=== PATIENT | male | born 1935 | race Caucasian/White ===

== ENCOUNTER 2016-11-24 18:41 | Observation (INO) | payer OTHER ==
[2016-11-24] MEDS ORDERED: NS 1000 ML 1,000 ML ONE ×2 (18:49→18:57)
[2016-11-24] MEDS ORDERED: NS 1000 ML 1,000 ML IV ONE (18:53)
[2016-11-24 19:17] LABS: BASOPHILS % (AUTO) 0.2 % (0.2-1.0); EOSINOPHILS % (AUTO) 0.6 % (0.9-2.9); HEMATOCRIT 36.3 % (42.0-54.0); HEMOGLOBIN 12.6 g/dL (13.5-18.0); LYMPHOCYTES # (AUTO) 0.9 X10^3/uL (1.3-2.9); LYMPHOCYTES % (AUTO) 17.9 % (21.0-51.0); MEAN CORPUSCULAR HEMOGLOBIN 31.7 pg (27.0-34.0); MEAN CORPUSCULAR HGB CONC 34.9 g/dL (33.0-35.0); MEAN CORPUSCULAR VOLUME 90.8 fL (80.0-100.0); MEAN PLATELET VOLUME 7.5 fL (7.4-11.0); MONOCYTES # (AUTO) 0.7 x10^3/uL (0.3-0.8); MONOCYTES % (AUTO) 13.4 % (0.0-13.0); NEUTROPHILS # (AUTO) 3.3 x10^3/uL (2.2-4.8); NEUTROPHILS % (AUTO) 67.9 % (42.0-75.0); PLATELET COUNT 172 X10^3/uL (150.0-450.0); RED BLOOD COUNT 3.99 X10^6/uL (4.7-6.0); RED CELL DISTRIBUTION WIDTH 14.8 % (11.6-16.5); WHITE BLOOD COUNT 4.9 X10^3/uL (3.6-10.0)
[2016-11-24 19:30] LABS: BLOOD UREA NITROGEN 18 mg/dL (7-18); CALCIUM 8.6 mg/dL (8.5-10.1); CARBON DIOXIDE 27.5 mmol/L (21-32); CHLORIDE 106 mmol/L (98-107); COR NA(FOR HYPERGLY) 144 mmol/L (136-145); CREATININE 1.71 mg/dL (0.70-1.30); GLUCOSE 134 mg/dL (65-99); SODIUM 143 mmol/L (136-145); TROPONIN I < 0.02 ng/mL (0-1.5); eGFR BLACK RACES 50 (>60); eGFR NON BLACK RACES 41 (>60)
[2016-11-24 19:34] LABS: ALANINE AMINOTRANSFERASE 24 Units/L (12-78); ALBUMIN 3.4 g/dL (3.4-5.0); ALKALINE PHOSPHATASE 70 Units/L (46-116); ASPARTATE AMINO TRANSFERASE 22 Units/L (15-37); CREATINE KINASE 82 Units/L (39-308); CREATINE KINASE MB < 1.0 ng/mL (0-4.0); MAGNESIUM 1.9 mg/dL (1.7-2.9); TOTAL PROTEIN 6.9 g/dL (6.4-8.2)
[2016-11-24 19:39] LABS: CKMB % 1.2 % (<4)
--- NOTE | 2016-11-24 20:17 | DR.GENAD ---
HPI - PCP Primary Care Physician: WILNER - Complaint/Symptoms Chief Complaint:: PT C/O C/C/C, DIZZINESS, WEAKNESS, AND FEVER. PT'S SYMPOTOMS STARTED SATURDAY. Patient actually presents with chest pain that has progressively gotten worse. His PMH is significant for stent placed two months ago at [facility]. - Source History Provided: Patient - Mode of Arrival Mode of Arrival: Ambulatory - Timing Onset of Chief Complaint: 11/22/16 PMH - PMH Past Medical History: Yes Past Medical History: Coronary Artery Disease, Dyslipidemia, [place] Past Surgical History: Yes Surgical History: CABG/Valve Surgery - Family History History of Family Medical Conditions: Yes Family Medical History: [place], Coronary Artery Disease, Hypertension - Social History Does any household member use tobacco: No Alcohol Use: None Do you use any recreational Drugs:: No Lives With: Family Lives Where: Home - infectious screening In the last 2 months have you had wt loss of >10#?: NO Have you had fever, night sweats or hemotysis?: No Have you traveled outside the country in the last 6 months?: No Isolation: Standard ROS - Review of Systems Constitutional: No Symptoms Reported Eyes: No Symptoms Reported ENTM: No Symptoms Reported Respiratoy: No Symptoms Reported Cardiovascular: No Symptoms Reported Gastrointestinal/Abdominal: No Symptoms Reported Genitourinary: No Symptoms Reported Neurological: No Symptoms Reported Musculoskeletal: No Symptoms Reported Integumentary: No Symptoms Reported Hematologic/Lymphatic: No Symptoms Reported Endocrine: No Symptoms Reported Psychiatric: No Symptoms Reported All Other Systems: Reviewed and Negative PE - Vital Signs Vitals: Temperature 99.1 F Pulse Rate [Left Brachial] 96 Pulse Rate [Standing] 63 Pulse Rate [Sitting] 74 Pulse Rate [Lying] 74 Pulse Rate 74 Respiratory Rate 16 Blood Pressure [Left Arm] 118/57 Blood Pressure [Standing] 89/49 Blood Pressure [Sitting] 104/53 Blood Pressure [Lying] 111/59 Blood Pressure 65/48 O2 Sat by Pulse Oximetry 98 - General Limitations: No Limitations General Appearance: Alert, In No Apparent Distress - Head Head Exam: Normal Inspection, Atraumatic - Eyes Eye exam: Normal Appearance, PERRL, EOMI - ENT ENT Exam: Normal Exam External Ear Exam: Normal External Inspection TM/Canal Exam: Bilateral Normal Nose Exam: Normal Nose Exam, Sinus Tenderness Mouth Exam: Normal Inspection Throat Exam: Normal Inspection - Neck Neck Exam: Normal Inspection, Full ROM - Chest Chest Inspection: Normal Inspection - Respiratory Respiratory Exam: Normal Lung Sounds Bilat Respiratory Exam: Bilateral Clear to Auscultation - Cardiovascular Cardiovascular Exam: Regular Rate - Abdominal Exam Abdominal Exam: Normal Inspection, Normal Bowel Sounds Abdominal Tenderness: negative: RUQ, RLQ, LUQ, LLQ, Epigastrium, Suprapubic, Diffuse, Mild, Moderate, Severe, Other - Extremities Extremities Exam: Normal Inspection, Full ROM - Back Back Exam: Normal Inspection, Full ROM - Neurologic Neurological Exam: Alert, Oriented X3, CN II-XII Intact - Psychiatric Psychiatric Exam: Normal Affect - Skin Skin Exam: Warm, Dry, Intact Course - Consultation Called: 21:44 (Agreed to admit for chest pain r/o) ROR - Labs Reviewed Laboratory Results Reviewed?: Yes (cardiac enzymes wnl) Result Diagrams: 11/24/16 19:08 11/24/16 19:08 Laboratory: WBC 4.9 X10^3/uL (3.6-10.0) 11/24/16 19:08 RBC 3.99 X10^6/uL (4.7-6.0) L 11/24/16 19:08 Hgb 12.6 g/dL (13.5-18.0) L 11/24/16 19:08 Hct 36.3 % (42.0-54.0) L 11/24/16 19:08 MCV 90.8 fL (80.0-100.0) 11/24/16 19:08 MCH 31.7 pg (27.0-34.0) 11/24/16 19:08 MCHC 34.9 g/dL (33.0-35.0) 11/24/16 19:08 RDW 14.8 % (11.6-16.5) 11/24/16 19:08 Plt Count 172 X10^3/uL (150.0-450.0) 11/24/16 19:08 MPV 7.5 fL (7.4-11.0) 11/24/16 19:08 Neut % 67.9 % (42.0-75.0) 11/24/16 19:08 Lymph % 17.9 % (21.0-51.0) L 11/24/16 19:08 [place] % 13.4 % (0.0-13.0) H 11/24/16 19:08 Eos % 0.6 % (0.9-2.9) L 11/24/16 19:08 Baso % 0.2 % (0.2-1.0) 11/24/16 19:08 Neut # 3.3 x10^3/uL (2.2-4.8) 11/24/16 19:08 Lymph # 0.9 X10^3/uL (1.3-2.9) L 11/24/16 19:08 [place] # 0.7 x10^3/uL (0.3-0.8) 11/24/16 19:08 Eos # 0.0 x10^3/uL (0.0-0.2) 11/24/16 19:08 Baso # 0.0 X10^3/uL (0.0-0.1) 11/24/16 19:08 Absolute Nucleated RBC 0.0 /100WBC 11/24/16 19:08 INR Target Range - 11/24/16 19:08 INR 0.95 (0.8-1.3) 11/24/16 19:08 PTT 30.4 SECONDS (22.9-36.5) 11/24/16 19:08 PTT Comment - 11/24/16 19:08 Sodium 143 mmol/L (136-145) 11/24/16 19:08 Corrected Sodium 144 mmol/L (136-145) 11/24/16 19:08 Potassium 3.5 mmol/L (3.5-5.1) 11/24/16 19:08 Chloride 106 mmol/L (98-107) 11/24/16 19:08 Carbon Dioxide 27.5 mmol/L (21-32) 11/24/16 19:08 BUN 18 mg/dL (7-18) 11/24/16 19:08 Creatinine 1.71 mg/dL (0.70-1.30) H 11/24/16 19:08 Est GFR (MDRD) Af Amer 50 (>60) L 11/24/16 19:08 Est GFR (MDRD) Non-Af 41 (>60) L 11/24/16 19:08 Glucose 134 mg/dL (65-99) H 11/24/16 19:08 Calcium 8.6 mg/dL (8.5-10.1) 11/24/16 19:08 Corrected Calcium TNP 11/24/16 19:08 Magnesium 1.9 mg/dL (1.7-2.9) 11/24/16 19:08 Total Bilirubin 0.30 mg/dL (0.2-1.0) 11/24/16 19:08 AST 22 Units/L (15-37) 11/24/16 19:08 ALT 24 Units/L (12-78) 11/24/16 19:08 Alkaline Phosphatase 70 Units/L (46-116) 11/24/16 19:08 Creatine Kinase 82 Units/L (39-308) 11/24/16 19:08 CK-MB (CK-2) < 1.0 ng/mL (0-4.0) 11/24/16 19:08 CK/CKMB % Calc 1.2 % (<4) 11/24/16 19:08 Troponin I < 0.02 ng/mL (0-1.5) 11/24/16 19:08 Total Protein 6.9 g/dL (6.4-8.2) 11/24/16 19:08 Albumin 3.4 g/dL (3.4-5.0) 11/24/16 19:08 Globulin 3.5 g/dL (2.5-4.5) 11/24/16 19:08 Albumin/Globulin Ratio 1.0 Ratio (1.1-2.1) L 11/24/16 19:08 Influenza A (H1N1) PCR Invalid-recollect (NOT DETECT) 11/24/16 19:00 Influenza Type A (PCR) Invalid-recollect (NEGATIVE) 11/24/16 19:00 Influenza Type B (PCR) Invalid-recollect (NEGATIVE) 11/24/16 19:00 - XRAY XRAY Interpreted by: Radiologist (Chest:Chronic lung parenchymal changes are seen bilaterally and the lung volumes are increased, consistent with COPD, no acute abnormality) - EKG Rate: 67 Rhythm: NSR Block: IVCD ST: Nonsp - Diagnosis Discharge Problem: Chest pain, rule out acute myocardial infarction - Discharge Plan Condition: Stable - Follow ups/Referrals Follow ups/Referrals: Rodrigo Baez [Primary Care Provider] - 3 days - Instructions
--- NOTE | 2016-11-24 21:08 | RAD ---
EXAM: Chest X-ray INDICATION: Chest pain COMPARISION: Prior exam from August 14, 2016 TECHNIQUE: Single view FINDINGS: Chronic lung parenchymal changes are present bilaterally. The lung volumes are increased, and there is flattening of the hemidiaphragms. No focal lung parenchymal abnormality identified. The cardiac silhouette is normal. Sternotomy wires and mediastinal clips are present. The mediastinum is normal . The regional skeleton is intact. No evidence of a pleural effusion. IMPRESSION: Chronic lung parenchymal changes are seen bilaterally and the lung volumes are increased, consistent with COPD. No acute abnormality. Reported By:
[2016-11-24] MEDS ORDERED: MORPHINE SULFATE INJ 4 MG IVP PRN (21:58)
[2016-11-24] MEDS ORDERED: ZOFRAN INJ 4 MG VIAL IVP PRN (21:59)
[2016-11-24 22:45] LABS: CKMB % 1.3 % (<4); CREATINE KINASE 80 Units/L (39-308); CREATINE KINASE MB < 1.0 ng/mL (0-4.0); TROPONIN I < 0.02 ng/mL (0-1.5)
[2016-11-25] MEDS: NS 1000 ML 1,000 ML IV SCH ×3 (00:17→21:22)
[2016-11-25] MEDS: TAMIFLU PO SCH ×3 (00:18→21:23)
[2016-11-25] MEDS: ASPIRIN EC 81 MG PO SCH ×2 (00:19→21:23)
[2016-11-25] MEDS: LIPITOR TAB 40 MG PO SCH ×2 (00:19→21:23)
[2016-11-25] MEDS: AMBIEN PO PRN ×2 (00:19→21:24)
[2016-11-25] MEDS: RANEXA PO SCH ×3 (00:19→21:23)
[2016-11-25] MEDS: PLAVIX PO SCH ×2 (00:20→21:23)
[2016-11-25] MEDS: NEURONTIN CAP 300 MG PO SCH ×4 (00:20→21:24)
[2016-11-25 00:21] VITALS: BMI 29.2
[2016-11-25 04:23] LABS: CHOL/HDL RATIO 4.2 (0.0-5.0); CHOLESTEROL 118 mg/dL (0-200); CKMB % 1.5 % (<4); CREATINE KINASE 65 Units/L (39-308); CREATINE KINASE MB < 1.0 ng/mL (0-4.0); HDL CHOLESTEROL 28 mg/dL (40-60); TRIGLYCERIDES 187 mg/dL (0-150); TROPONIN I < 0.02 ng/mL (0-1.5)
[2016-11-25] MEDS: VITAMIN D3 PO SCH (08:53)
[2016-11-25 10:33] LABS: CREATINE KINASE 65 Units/L (39-308); CREATINE KINASE MB < 1.0 ng/mL (0-4.0); TROPONIN I < 0.02 ng/mL (0-1.5)
[2016-11-25 11:16] LABS: CKMB % 1.5 % (<4)
[2016-11-25] MEDS: ROBITUSSIN DM PO SCH ×3 (14:52→21:22)
[2016-11-25] MEDS: TUSSIONEX PENNKINETIC SUSP PO PRN (15:56)
[2016-11-26] MEDS: NS 1000 ML 1,000 ML IV SCH (03:55)
[2016-11-26 05:12] LABS: BASOPHILS % (AUTO) 0.3 % (0.2-1.0); HEMATOCRIT 31.7 % (42.0-54.0); HEMOGLOBIN 11.2 g/dL (13.5-18.0); LYMPHOCYTES # (AUTO) 1.2 X10^3/uL (1.3-2.9); LYMPHOCYTES % (AUTO) 27.7 % (21.0-51.0); MEAN CORPUSCULAR HEMOGLOBIN 32.3 pg (27.0-34.0); MEAN CORPUSCULAR HGB CONC 35.2 g/dL (33.0-35.0); MEAN CORPUSCULAR VOLUME 91.8 fL (80.0-100.0); MEAN PLATELET VOLUME 7.9 fL (7.4-11.0); MONOCYTES # (AUTO) 0.7 x10^3/uL (0.3-0.8); MONOCYTES % (AUTO) 16.3 % (0.0-13.0); NEUTROPHILS # (AUTO) 2.4 x10^3/uL (2.2-4.8); NEUTROPHILS % (AUTO) 54.7 % (42.0-75.0); PLATELET COUNT 128 X10^3/uL (150.0-450.0); RED BLOOD COUNT 3.46 X10^6/uL (4.7-6.0); RED CELL DISTRIBUTION WIDTH 14.7 % (11.6-16.5); WHITE BLOOD COUNT 4.4 X10^3/uL (3.6-10.0)
[2016-11-26 05:27] LABS: ALANINE AMINOTRANSFERASE 18 Units/L (12-78); ALBUMIN 2.9 g/dL (3.4-5.0); ALKALINE PHOSPHATASE 56 Units/L (46-116); ASPARTATE AMINO TRANSFERASE 18 Units/L (15-37); BLOOD UREA NITROGEN 16 mg/dL (7-18); CALCIUM 8.4 mg/dL (8.5-10.1); CARBON DIOXIDE 25.6 mmol/L (21-32); CHLORIDE 107 mmol/L (98-107); COR CA(FOR HYPOALB) 9.3 mg/dL (8.5-10.1); GLUCOSE 101 mg/dL (65-99); SODIUM 139 mmol/L (136-145); eGFR BLACK RACES 58 (>60); eGFR NON BLACK RACES 48 (>60)
[2016-11-26] MEDS: TUSSIONEX PENNKINETIC SUSP PO PRN (06:04)
[2016-11-26] MEDS: NEURONTIN CAP 300 MG PO SCH (06:04)
--- NOTE | 2016-11-26 07:57 | RAD ---
HISTORY: Shortness of breath Study: Chest two-view Comparison: November 24, 2016 Findings: The patient is status post median sternotomy and CABG. The heart is upper limits normal in size. No congestive heart failure is noted. No acute alveolar infiltrates or pleural effusions are identified . Mild hyperinflation is present. The bony thorax is unremarkable. IMPRESSION: Lungs mildly hyperinflated but clear Reported By:
[2016-11-26] MEDS: VITAMIN D3 PO SCH (09:13)
[2016-11-26] MEDS: ROBITUSSIN DM PO SCH (09:13)
[2016-11-26] MEDS: TAMIFLU PO SCH (09:13)
[2016-11-26] MEDS: RANEXA PO SCH (09:14)
[2016-11-26 12:09] VITALS: BP 97/54
--- NOTE | 2016-11-26 14:06 | DR.H&P ---
H&P - History & Physical for Day of: H&P Date: 11/24/16 - Chief Complaint Chief Complaint: CHEST PAIN, CCC, DIZZINESS, WEAKNESS, FEVER - Allergies Allergies/Adverse Reactions: Allergies Allergy/AdvReac Type Severity Reaction Status Date / Time No Known Drug Allergy Allergy Verified 08/14/16 19:32 - History of Present Illness History of Present Illness: THIS IS AN 81 YEAR OLD MALE, WHO IS A PATIENT OF OURS. HE PRESENTS TO THE EMERGENCY ROOM WITH COMPLAINTS OF CHEST PAIN, CCC, DIZZINESS, WEAKNESS, AND FEVER. PATIENT REPORTS SYMPTOMS STARTED ON 11/22/16. HE STATES CHEST PAIN ALSO STARTED ON THAT DATE AND HAS PROGRESSIVELY WORSENED. HE HAS A HISTORY OF CARDIAC STENT PLACEMENT 2 MONTHS AGO. PATIENT REPORTS LOW- GRADE TEMP AT HOME. ON AUSCULTATION, LUNGS ARE NOTED WITH RHONCHI THROUGHOUT. LABS AND XRAY OBTAINED. CBC WNL EXCEPT: H/H 12.6/36.3. CMP WNL EXCEPT: CREAT 1.71, GFR 41, GLUCOSE 134. CARDIAC ENZYMES WNL. INFLUENZA A POSITIVE. CHEST XRAY REPORTS CHRONIC LUNG PARENCHYMAL CHANGES ARE SEEN; LUNG VOLUMES INCREASED, CONSISTENT WITH COPD. EKG: SINUS RHYTHM, RATE 67. PATIENT RECEIVED AN IV FLUIDS BOLUS IN THE ER. WE WILL ADMIT PATIENT FOR FURTHER TREATMENT AND EVALUATION. PATIENT WILL BE MONITORED ON TELEMETRY AND WE WILL OBTAIN SERIAL CARDIAC ENZYMES AND EKG'S. - Past Medical History Past Medical History: Coronary Artery Disease, Dyslipidemia, [place] Additional Medical History: Cataracts, Constipation, Skin Cancer - Past Surgical History Surgical History: Angioplasty/Stents, CABG/Valve Surgery - Family History Family Medical History: [place], Sudden Cardiac - Social History Does patient currently use any type of tobacco product: No Have you used tobacco products in the last 12 months: No Type of Tobacco Use: None Does any household member use tobacco: No Alcohol Use: None Drug Use: None - Medications Home Medications: Aspirin [Aspirin Adult Low Dose] 81 mg PO HS 11/24/16 [History Confirmed ] Atorvastatin Calcium [LIPITOR Tab 40 mg *] 40 mg PO HS 11/24/16 [History Confirmed 11/24/16] Bisacodyl [Sb Gentle Laxative Womens] 5 mg PO PRN PRN 11/24/16 [History Confirmed 11/24/16] Cholecalciferol [Vitamin D3] 5,000 unit PO DAILY 11/24/16 [History Confirmed ] Clopidogrel Bisulfate [PLAVIX TAB 75 MG *] 75 mg PO HS 11/24/16 [History Confirmed 11/24/16] Gabapentin [NEURONTIN CAP 300 mg *] 300 mg PO TID 11/24/16 [History Confirmed ] Ranolazine [RANEXA 500 MG *] 500 mg PO BID 11/24/16 [History Confirmed 11/24/16] Zolpidem Tartrate [AMBIEN 5 MG *] 5 mg PO HS PRN 11/24/16 [History Confirmed ] - Review of Systems Constitutional: Fever, Weakness, Malaise Eyes: No Symptoms Reported. denies: Pain, Vision Change, Conjunctivae Inflammation, Eyelid Inflammation, Redness ENT: No Symptoms Reported. denies: Ear Pain, Ear Discharge, Nose Pain, Nose Discharge, Nose Congestion, Mouth Pain, Mouth Swelling, Throat Pain, Throat Swelling Respiratory: Cough, Shortness of Breath. denies: Sputum, Wheezing Cardiovascular: Chest Pain, Light Headedness. denies: Palpitations, Orthopnea, Paroxysmal Noc. Dyspnea, Edema Gastrointestinal: No Symptoms Reported. denies: Nausea, Vomiting, Abdominal Pain, Diarrhea, Constipation, Melena, Hematochezia Genitourinary: No Symptoms Reported. denies: Dysuria, Frequency, Incontinence, Hematuria, Retention Musculoskeletal: No Symptoms Reported. denies: Shoulder Pain, Arm Pain, Back Pain, Hand Pain, Leg Pain, Foot Pain Skin: No Symptoms Reported. denies: Lesions, Jaundice, Bruising, Wound, Ecchymosis Neurological: No Symptoms Reported. denies: Weakness, Numbness, Incoordination , Change in Speech, Confusion, Seizures - Physical Exam Vital Signs: Temperature 97.9 F Pulse Rate [Left Brachial] 49 Respiratory Rate 18 Blood Pressure [Left Arm] 97/54 O2 Sat by Pulse Oximetry 96 Oriented: Normal, Time, Person, Place Eyes: Normal. negative: Blurred Vision, Diplopia, Discharge, Pain, Redness, Photophobia Ear: Normal. negative: Swelling, Ecchymosis, Hemotypanum, Abrasion, Laceration Nose: Normal. negative: Injected, Discharge, Blood Throat: Dry. negative: Tonsillar Hypertrophy, Exudate Respiratory: Rhonchi Throughout Cardiovascular: Normal. negative: Murmur, Edema : Normal. negative: Dysuria, Hematuria, Frequency, Discharge, Testicular Pain Auscultation: Bowel Sounds: Normal. negative: Bruit Palpation: Normal. negative: Spleen Enlarged, Liver Enlarged, Mass Pulsatile Tenderness: Normal. negative: Rebound, Guarding, Rigidity Skin: Decreased [place]urgur. negative: Diaphoresis, Wound, Bruising, Ecchymosis Musculoskeletal: Normal Psychiatric: Normal Mood Description: Calm, Appropriate Affect: Normal Speech Pattern: Clear, Appropriate - Assessment/Plan (1) Chest pain, rule out acute myocardial infarction Status: Acute Plan: ADMIT PATIENT, MONITOR ON TELEMETRY, SERIAL CARDIAC ENZYMES, EKG'S, SUPPLEMENTAL OXYGEN, MONITOR LABS. (2) Acute bronchitis due to Haemophilus influenzae Status: Acute Plan: START TAMIFLU, DUONEBS, MONITOR LABS. (3) CAD (coronary artery disease) Qualifiers: Coronary Disease-Associated Artery/Lesion type: rosebud artery [place] vs. transplanted heart: rosebud heart Associated angina: with stable angina Qualified Code(s): I25.118 - Atherosclerotic heart disease of rosebud coronary artery with other forms of angina pectoris Status: Chronic (4) H/O heart artery stent Status: Chronic (5) Hx of acute myocardial infarction Status: Chronic (6) Hyperlipidemia Qualifiers: Hyperlipidemia type: mixed hyperlipidemia Qualified Code(s): E78.2 - Mixed hyperlipidemia Status: Chronic (7) Constipation by delayed colonic transit Status: Chronic (8) Insomnia Qualifiers: Insomnia type: primary Qualified Code(s): F51.01 - Primary insomnia Status: Chronic
== END 2016-11-26 12:05 | disposition home or self-care (01) ==
LOC: ER 18:57 → MED/SURG 21:52
PROVIDERS: ADMIT Internal Medicine; ATTEND Internal Medicine
DX: R07.89 Other chest pain (principal); I25.118 Atherosclerotic heart disease of native coronary artery with other forms of angina pectoris; E78.2 Mixed hyperlipidemia; R53.1 Weakness; R42 Dizziness and giddiness; J44.9 Chronic obstructive pulmonary disease, unspecified; K59.09 Other constipation; F51.01 Primary insomnia; R94.31 Abnormal electrocardiogram [ECG] [EKG]; D64.89 Other specified anemias; R94.4 Abnormal results of kidney function studies; Z79.01 Long term (current) use of anticoagulants
CPT/HCPCS: 36415; 71010; 71020; 80053; 80061; 82550; 82553; 83735; 84484; 85025; 85610; 85730; 87502; 87503; 93005; 94760; 96365; 99284; A4222; G9035; G0378

== ENCOUNTER → 2017-02-07 | Outpatient (CLI) | payer OTHER ==
--- NOTE | 2017-02-07 10:21 | VAS ---
STUDY: CAROTID DUPLEX DOPPLER EXAMINATION History: Dizziness and giddiness. Comparison: None. Technique: Multiple vargas scale and color flow Doppler images of the right and left carotid arterial system were obtained. The vertebral arterial system was evaluated as well. Findings: Normal color flow Doppler is seen throughout the right and left carotid arterial system. There is no evidence of hemodynamically significant stenosis in the internal carotid arteries on eit her side based on velocity criteria. Vertebral artery flow is antegrade bilaterally. IMPRESSION: 1. No evidence of hemodynamically significant stenosis in the internal carotid arteries. Reported By:
== END ==
LOC: RAD 09:44
PROVIDERS: ATTEND Physician Assistant
DX: R42 Dizziness and giddiness (principal)
CPT/HCPCS: 93880

== ENCOUNTER 2017-05-28 18:23 | Emergency (ER) | payer OTHER ==
[2017-05-28] MEDS ORDERED: MOTRIN TAB 800 MG PO ONE ×2 (18:35→18:36)
[2017-05-28 18:40] VITALS: BMI 31.0
--- NOTE | 2017-05-28 18:44 | DR.GENAD ---
HPI - PCP Primary Care Physician: lorena - HPI Comment HPI Comment: SHORTLY AFTER EATEN BURGER, LUQ ABDOMINAL PAIN STARTED. PATIENT VOMITED LASRGE AMOUNT OF STOMACK CONTENT OF UNDIGESTED FOOD. CURRENTLY HAVING UPPER ABDOMINAL PAIN. NO DIARRHEA. SLIGHT LOWER XYPHOID PAIN. NO FEVER. WAS HAVING CHILLS BEFORE COMING. LOW GRADE FEVER PRESENT. - Complaint/Symptoms Chief Complaint Doctors Comments: ABDOMINAL PAIN WITH NAUSEA. VOMITED ONCE. Chief Complaint:: chills luq pain vomited x 1 - Nurses notes reviewed Nurses Notes Review: Yes - Source History Provided: Patient - Mode of Arrival Mode of Arrival: EMS - Timing Onset of Chief Complaint: 05/28/17 Came on: Suddenly - Duration Duration: Constant Duration: Days - Severity Severity: Moderate PMH - PMH Past Medical History: Yes Past Medical History: Coronary Artery Disease, Dyslipidemia, [place] Past Surgical History: Yes Surgical History: Angioplasty/Stents, CABG/Valve Surgery - Family History History of Family Medical Conditions: Yes Family Medical History: [place], Sudden Cardiac - Social History Does patient currently use any type of tobacco product: No Have you used tobacco products in the last 12 months: No Type of Tobacco Use: None Does any household member use tobacco: No Alcohol Use: None Do you use any recreational Drugs:: No Lives With: Family Lives Where: Home - infectious screening In the last 2 months have you had wt loss of >10#?: NO Have you had fever, night sweats or hemotysis?: No Have you traveled outside the country in the last 6 months?: No Isolation: Standard ROS - Review of Systems Constitutional: Weakness, Fatigue Eyes: negative: Eye Pain, Discharge ENTM: negative: Ear Pain, Nose Discharge, Nose Congestion, Throat Pain Respiratoy: Non-Productive Cough, Short of Breath. negative: Productive Cough, Wheezing, Hemoptysis Cardiovascular: Chest Pain. negative: Edema Gastrointestinal/Abdominal: Abdominal Pain, Nausea, Vomiting. negative: Diarrhea Genitourinary: No Symptoms Reported Neurological: Weakness Musculoskeletal: Back Pain, Muscle Pain Integumentary: No Symptoms Reported Hematologic/Lymphatic: No Symptoms Reported Endocrine: No Symptoms Reported All Other Systems: Reviewed and Negative PE - Vital Signs Vitals: Temperature 99 F Pulse Rate [Left Radial] 70 Pulse Rate 76 Respiratory Rate 18 Blood Pressure [Left Arm] 100/70 Blood Pressure [Standing] 89/49 Blood Pressure [Sitting] 104/53 Blood Pressure [Lying] 111/59 Blood Pressure 159/71 O2 Sat by Pulse Oximetry 100 - General Limitations: No Limitations General Appearance: Alert - Head Head Exam: Normal Inspection - Eyes Eye exam: Normal Appearance - ENT ENT Exam: Normal External Ear Exam External Ear Exam: Normal External Inspection TM/Canal Exam: Bilateral Normal Nose Exam: Normal Nose Exam Mouth Exam: Normal Inspection Throat Exam: Normal Inspection - Neck Neck Exam: Trachea Midline - Chest Chest Inspection: Symmetric Chest Wall Rise - Respiratory Respiratory Exam: Normal Lung Sounds Bilat Respiratory Exam: Bilateral Rhonchi, Lower Rhonchi - Cardiovascular Cardiovascular Exam: Regular Rate, Normal Rhythm, Normal Heart Sounds - Abdominal Exam Abdominal Exam: Normal Bowel Sounds, Soft, Tenderness Abdominal Tenderness: Epigastrium, Moderate, Other (BLADDER DISTENDED) - Extremities Extremities Exam: Normal Inspection - Back Back Exam: Normal Inspection - Neurologic Neurological Exam: Alert, Oriented X3 - Psychiatric Psychiatric Exam: Anxious - Skin Skin Exam: Normal Color MDM - Additional Information Additional Information Obtained From: Family - Differential Diagnosis Differential Diagnosis: ABDOMINAL PAIN, URINARY RETENTION, Course - Treatment Treatment: SEE ORDERS. IV FLUIDS AND IV PAIN MED. FEELING BETTERBUT BP LOW FRON IV PAIN MED. IV FLUID IMPROVE BP. 700CC URINE DRAINE VIA ELY CATH THAT WAS REMOVE AFTER. - Reevaluation 1st: Improved - Education/Counseling Education/Counseling: Patient, Family, Education Educated On: Treatment, Diagnosis, Needs for Follow Up ROR - Labs Reviewed Laboratory Results Reviewed?: Yes Result Diagrams: 05/28/17 18:56 05/28/17 18:56 Laboratory: WBC 5.1 X10^3/uL (3.6-10.0) 05/28/17 18:56 RBC 4.43 X10^6/uL (4.7-6.0) L 05/28/17 18:56 Hgb 14.7 g/dL (13.5-18.0) 05/28/17 18:56 Hct 41.5 % (42.0-54.0) L 05/28/17 18:56 MCV 93.5 fL (80.0-100.0) 05/28/17 18:56 MCH 33.2 pg (27.0-34.0) 05/28/17 18:56 MCHC 35.5 g/dL (33.0-35.0) H 05/28/17 18:56 RDW 13.2 % (11.6-16.5) 05/28/17 18:56 Plt Count 181 X10^3/uL (150.0-450.0) 05/28/17 18:56 MPV 8.1 fL (7.4-11.0) 05/28/17 18:56 Neut % 87.5 % (42.0-75.0) H 05/28/17 18:56 Lymph % 8.2 % (21.0-51.0) L 05/28/17 18:56 [place] % 3.7 % (0.0-13.0) 05/28/17 18:56 Eos % 0.4 % (0.9-2.9) L 05/28/17 18:56 Baso % 0.2 % (0.2-1.0) 05/28/17 18:56 Neut # 4.5 x10^3/uL (2.2-4.8) 05/28/17 18:56 Lymph # 0.4 X10^3/uL (1.3-2.9) L 05/28/17 18:56 [place] # 0.2 x10^3/uL (0.3-0.8) L 05/28/17 18:56 Eos # 0.0 x10^3/uL (0.0-0.2) 05/28/17 18:56 Baso # 0.0 X10^3/uL (0.0-0.1) 05/28/17 18:56 Absolute Nucleated RBC 0.0 /100WBC 05/28/17 18:56 INR Target Range - 05/28/17 18:56 INR 0.95 (0.8-1.3) 05/28/17 18:56 PTT 28.5 SECONDS (22.9-36.5) 05/28/17 18:56 PTT Comment - 05/28/17 18:56 Sodium 139 mmol/L (136-145) 05/28/17 18:56 Corrected Sodium TNP 05/28/17 18:56 Potassium 3.9 mmol/L (3.5-5.1) 05/28/17 18:56 Chloride 104 mmol/L (98-107) 05/28/17 18:56 Carbon Dioxide 27.7 mmol/L (21-32) 05/28/17 18:56 BUN 16 mg/dL (7-18) 05/28/17 18:56 Creatinine 1.59 mg/dL (0.70-1.30) H 05/28/17 18:56 Est GFR (MDRD) Af Amer 54 (>60) L 05/28/17 18:56 Est GFR (MDRD) Non-Af 45 (>60) L 05/28/17 18:56 Glucose 100 mg/dL (65-99) H 05/28/17 18:56 Lactic Acid 1.1 mmol/L (0.4-2.0) 05/28/17 18:56 Calcium 9.6 mg/dL (8.5-10.1) 05/28/17 18:56 Corrected Calcium TNP 05/28/17 18:56 Total Bilirubin 0.70 mg/dL (0.2-1.0) 05/28/17 18:56 AST 29 Units/L (15-37) 05/28/17 18:56 ALT 28 Units/L (12-78) 05/28/17 18:56 Alkaline Phosphatase 72 Units/L (46-116) 05/28/17 18:56 Creatine Kinase 162 Units/L (39-308) 05/28/17 18:56 CK-MB (CK-2) 2.1 ng/mL (0-4.0) 05/28/17 18:56 CK/CKMB % Calc 1.3 % (<4) 05/28/17 18:56 Troponin I < 0.02 ng/mL (0-1.5) 05/28/17 18:56 C-Reactive Protein 3.10 mg/L (0-3.0) H 05/28/17 18:56 Total Protein 7.8 g/dL (6.4-8.2) 05/28/17 18:56 Albumin 4.1 g/dL (3.4-5.0) 05/28/17 18:56 Globulin 3.7 g/dL (2.5-4.5) 05/28/17 18:56 Albumin/Globulin Ratio 1.1 Ratio (1.1-2.1) 05/28/17 18:56 Specimen Type Clean catch urine 05/28/17 20:44 Urine Color Yellow (YELLOW) 05/28/17 20:44 Urine Appearance Clear (CLEAR) 05/28/17 20:44 Urine pH 6.0 (5.0 - 8.0) 05/28/17 20:44 Ur Specific [place] 1.015 (1.000-1.030) 05/28/17 20:44 Urine Protein Negative (NEGATIVE) 05/28/17 20:44 Urine Glucose (UA) Negative (NEGATIVE) 05/28/17 20:44 Urine Ketones Negative (NEGATIVE) 05/28/17 20:44 Urine Occult Blood Negative (NEGATIVE) 05/28/17 20:44 Urine Nitrite Negative (NEGATIVE) 05/28/17 20:44 Urine Bilirubin Negative (NEGATIVE) 05/28/17 20:44 Urine Urobilinogen Normal (NORMAL) 05/28/17 20:44 Ur Leukocyte Esterase Negative (NEGATIVE) 05/28/17 20:44 Urine RBC 0-1 /HPF (NEGATIVE) 05/28/17 20:44 Urine WBC 0-1 /HPF (NEGATIVE) 05/28/17 20:44 Ur Squamous Epith Cells Negative /HPF (NEGATIVE) 05/28/17 20:44 Urine Bacteria Trace /HPF (NEGATIVE) 05/28/17 20:44 Urine Mucus Few /HPF (NEGATIVE) 05/28/17 20:44 Ur Culture Indicated? No/not indicated 05/28/17 20:44 Influenza Type A (PCR) Negative (NEGATIVE) 05/28/17 18:58 Influenza Type B (PCR) Negative (NEGATIVE) 05/28/17 18:58 - XRAY XRAY Interpreted by: Radiologist XRAY Findings: REPORT DISCUSS WITH PATIENT AND FAMILY. - Diagnosis Discharge Problem: Abdominal pain, Hypotension due to medication, Urinary retention - Discharge Plan Disposition: 01 HOME, SELF-CARE Condition: Stable Prescriptions: Ondansetron HCl [Zofran Tab 4 mg] 4 mg PO Q8H PRN 12 Days #12 tab PRN Reason: Nausea/Vomiting - Follow ups/Referrals Follow ups/Referrals: Rodrigo Baez [Primary Care Provider] - 1 day - Instructions Instructions: Nausea, Adult, Abdominal Pain, Adult, [id number] Additional Instructions: RETURN TO ED IF WORSE.
--- NOTE | 2017-05-28 18:56 | RAD ---
HISTORY: Fever, epigastric pain Study: Chest AP portable Comparison: 11/26/2016 Findings: The trachea is midline. The cardiac silhouette is unremarkable. The lungs are mildly hyperinflated but free of acute alveolar infiltrates.. The bony thorax is unremarkable. The patient is status pos t median sternotomy and CABG. IMPRESSION: 1. Lungs mildly hyperinflated but clear Reported By:
[2017-05-28] MEDS ORDERED: ZOFRAN INJ 4 MG VIAL IVP ONE (19:05)
[2017-05-28] MEDS ORDERED: ZOFRAN INJ 4 MG VIAL ONE (19:05)
[2017-05-28 19:18] LABS: EOSINOPHILS % (AUTO) 0.4 % (0.9-2.9); LYMPHOCYTES # (AUTO) 0.4 X10^3/uL (1.3-2.9); MONOCYTES # (AUTO) 0.2 x10^3/uL (0.3-0.8); NEUTROPHILS # (AUTO) 4.5 x10^3/uL (2.2-4.8); WHITE BLOOD COUNT 5.1 X10^3/uL (3.6-10.0)
[2017-05-28 19:27] LABS: C-REACTIVE PROTEIN 3.1 mg/L (0-3.0)
[2017-05-28 19:32] LABS: BASOPHILS % (AUTO) 0.2 % (0.2-1.0); HEMATOCRIT 41.5 % (42.0-54.0); HEMOGLOBIN 14.7 g/dL (13.5-18.0); LYMPHOCYTES % (AUTO) 8.2 % (21.0-51.0); MEAN CORPUSCULAR HEMOGLOBIN 33.2 pg (27.0-34.0); MEAN CORPUSCULAR HGB CONC 35.5 g/dL (33.0-35.0); MEAN CORPUSCULAR VOLUME 93.5 fL (80.0-100.0); MEAN PLATELET VOLUME 8.1 fL (7.4-11.0); MONOCYTES % (AUTO) 3.7 % (0.0-13.0); NEUTROPHILS % (AUTO) 87.5 % (42.0-75.0); PLATELET COUNT 181 X10^3/uL (150.0-450.0); RED BLOOD COUNT 4.43 X10^6/uL (4.7-6.0); RED CELL DISTRIBUTION WIDTH 13.2 % (11.6-16.5)
[2017-05-28 19:37] LABS: BLOOD UREA NITROGEN 16 mg/dL (7-18); CALCIUM 9.6 mg/dL (8.5-10.1); CARBON DIOXIDE 27.7 mmol/L (21-32); CHLORIDE 104 mmol/L (98-107); CREATININE 1.59 mg/dL (0.70-1.30); SODIUM 139 mmol/L (136-145); TROPONIN I < 0.02 ng/mL (0-1.5); eGFR BLACK RACES 54 (>60); eGFR NON BLACK RACES 45 (>60)
[2017-05-28 19:41] LABS: ALANINE AMINOTRANSFERASE 28 Units/L (12-78); ALBUMIN 4.1 g/dL (3.4-5.0); ALKALINE PHOSPHATASE 72 Units/L (46-116); ASPARTATE AMINO TRANSFERASE 29 Units/L (15-37); CKMB % 1.3 % (<4); CREATINE KINASE 162 Units/L (39-308); CREATINE KINASE MB 2.1 ng/mL (0-4.0); TOTAL PROTEIN 7.8 g/dL (6.4-8.2)
[2017-05-28 19:49] LABS: LACTIC ACID 1.1 mmol/L (0.4-2.0)
[2017-05-28 20:48] LABS: BILIRUBIN,URINE NEGATIVE (NEGATIVE); BLOOD/HEMOGLOBIN,URINE NEGATIVE (NEGATIVE); GLUCOSE, URINE NEGATIVE (NEGATIVE); KETONES,URINE NEGATIVE (NEGATIVE); LEUKOCYTE ESTERASE ,URINE NEGATIVE (NEGATIVE); NITRITES,URINE NEGATIVE (NEGATIVE); PROTEIN,URINE NEGATIVE (NEGATIVE); UROBILINOGEN,URINE NORMAL (NORMAL)
--- NOTE | 2017-05-28 20:53 | CT ---
CT ABDOMEN AND PELVIS WITHOUT CONTRAST CLINICAL HISTORY: 81-year-old male with abdominal pain. COMPARISON: None. TECHNIQUE: Multiple contiguous computed tomographic axial images of the abdomen and pelvis were obtai sarika without the use of oral or intravenous contrast. Images were reformatted in the coronal and sagit bridget planes. FINDINGS: The lung bases demonstrate no evidence of focal air-space opacification, pleural effusion, pneumothor ax, or suspicious pulmonary nodules. Cardiomegaly status post CABG with atherosclerotic calcificatio n of the coronary arteries. The liver, gallbladder, pancreas, and spleen are within normal limits for noncontrast imaging. The adrenal glands and kidneys are normal bilaterally. There are no nephroureteral stones or perineph brennen fluid collections. There is no evidence of hydroureteronephrosis and the ureters run in an unobst ructed course to a massively distended urinary bladder. The prostate, seminal vesicles, and external genitalia are within normal limits. Pelvic phleboliths a re present. The appendix is normal in appearance. The bowel is without obstruction or inflammation and there is no free fluid or free air within the peritoneal cavity. There are no pathologically enlarged lymph n odes in the abdomen or pelvis. Moderate diffuse calcific atherosclerotic disease of the aorta and its branches. Soft tissues are normal. The osseous structures are intact without fracture or malalignment. Degenerative change of the lumbar spine most severe L4-L5 with anterolisthesis and complete loss of disc space with vacuum disc. IMPRESSION: 1. Massive distention of the urinary bladder, consider placement of Lemus catheter. 2. No acute intra-abdominal or intrapelvic process. Reported By:
[2017-05-28 20:55] LABS: APPEARANCE,URINE CLEAR (CLEAR); BACTERIA,URINE TRACE /HPF (NEGATIVE); COLOR,URINE YELLOW (YELLOW); MUCUS,URINE FEW /HPF (NEGATIVE); RBC,URINE 0-1 /HPF (NEGATIVE); SQUAMOUS EPITHELIAL CELL,UR NEGATIVE /HPF (NEGATIVE)
[2017-05-28] MEDS ORDERED: DEMEROL INJ IVP ONE (22:36)
[2017-05-28] MEDS ORDERED: PROTONIX INJ 40 MG VIAL IVP ONE (22:37)
[2017-05-28] MEDS ORDERED: PROTONIX INJ 40 MG VIAL ONE (22:38)
[2017-05-28] MEDS ORDERED: DEMEROL INJ ONE (22:39)
[2017-05-28] MEDS ORDERED: NS 1000 ML 1,000 ML ONE (22:55)
[2017-05-28] MEDS ORDERED: NS 100 ML IV 100 ML IV ONE (23:00)
[2017-05-29 00:51] VITALS: BP 100/70
== END 2017-05-29 00:40 | disposition home or self-care (01) ==
LOC: ER 18:34
DX: R10.12 Left upper quadrant pain (principal); I95.9 Hypotension, unspecified; R33.9 Retention of urine, unspecified
CPT/HCPCS: 36415; 51702; 71010; 74176; 80053; 81001; 82550; 82553; 83605; 84484; 85025; 85610; 85730; 86140; 87040; 87502; 93005; 96365; 96374; 96375; 99283; C9113; J2175; J2405

== ENCOUNTER 2017-11-01 17:09 | Emergency (ER) | payer OTHER ==
[2017-11-01 17:33] VITALS: BMI 25.0
[2017-11-01 17:36] LABS: BASOPHILS % (AUTO) 0.7 % (0.2-1.0); EOSINOPHILS % (AUTO) 0.6 % (0.9-2.9); HEMATOCRIT 38.8 % (42.0-54.0); HEMOGLOBIN 13.8 g/dL (13.5-18.0); LYMPHOCYTES # (AUTO) 2.5 X10^3/uL (1.3-2.9); LYMPHOCYTES % (AUTO) 38.9 % (21.0-51.0); MEAN CORPUSCULAR HEMOGLOBIN 32.8 pg (27.0-34.0); MEAN CORPUSCULAR HGB CONC 35.6 g/dL (33.0-35.0); MEAN CORPUSCULAR VOLUME 92.1 fL (80.0-100.0); MEAN PLATELET VOLUME 7.7 fL (7.4-11.0); MONOCYTES # (AUTO) 0.5 x10^3/uL (0.3-0.8); MONOCYTES % (AUTO) 7.1 % (0.0-13.0); NEUTROPHILS # (AUTO) 3.4 x10^3/uL (2.2-4.8); NEUTROPHILS % (AUTO) 52.7 % (42.0-75.0); PLATELET COUNT 222 X10^3/uL (150.0-450.0); RED BLOOD COUNT 4.21 X10^6/uL (4.7-6.0); RED CELL DISTRIBUTION WIDTH 14.3 % (11.6-16.5); WHITE BLOOD COUNT 6.5 X10^3/uL (3.6-10.0)
[2017-11-01] MEDS ORDERED: ASPIRIN 81 MG CHEWTAB ONE (17:36)
--- NOTE | 2017-11-01 17:43 | DR.CP ---
HPI - Time Seen Time seen: 17:35 - PCP Primary Care Physician: lorena - HPI Comment HPI Comment: EPISODE LASTED 30 MINS. HAVE REMAIN WEAK SINCE. DO NOT FEEL QUITE RIGHT. NO CHEST PAIN CURRENTLT. - Complaint Chief Complaint Doctor Comments: EPISODE OF WEAKNESS, DIAPHORESIS, NEAR SYNCOPE AND CHEST PAIN WHILE AT A AROUND 11.00 AM TODAY. Chief Complaint:: patient stated he was at a this morning and he started he started having chest pain and got diaphortic and very dizzy. patient stated he is not in pain at this time but he dont feel normal. - Reviewed Nurses Notes Review: Yes - Source History Provided: Patient, Family Member - Mode of Arrival Mode of Arrival: Ambulatory - Timing Onset of Chief Complaint: 11/01/17 Came on: Suddenly - Duration Duration: Since Onset Duration: Hours - Location Location of Chest Pain: Right, Chest - Context Onset: At rest Cardiac Risk Factors: Hyperlipidemia PE Risk Factors: None History of: [place], Angioplasty, Aspirin in last 24 hours Prehospital Care: ASA - Quality Quality: Burning - Severity Severity: Moderate - Modifying Factors Worsens: Nothing Impoves: Nothing - Associated Signs and Symptoms Associated Signs and Symptoms: Diaphoresis PMH - PMH Past Medical History: Yes Past Medical History: Coronary Artery Disease, Dyslipidemia, [place] Past Surgical History: Yes Surgical History: Angioplasty/Stents, CABG/Valve Surgery - Family History History of Family Medical Conditions: Yes Family Medical History: [place], Sudden Cardiac - Social History Does patient currently use any type of tobacco product: No Have you used tobacco products in the last 12 months: No Type of Tobacco Use: None Does any household member use tobacco: No Alcohol Use: None Do you use any recreational Drugs:: No Lives With: Family Lives Where: Home - infectious screening In the last 2 months have you had wt loss of >10#?: NO Have you had fever, night sweats or hemotysis?: No Have you traveled outside the country in the last 6 months?: No Isolation: Standard ROS - Review of Systems Constitutional: Diaphoresis, Weakness, Fatigue Eyes: No Symptoms Reported ENTM: No Symptoms Reported Respiratoy: negative: Productive Cough, Non-Productive Cough, Short of Breath, Wheezing, Hemoptysis Cardiovascular: Chest Pain Gastrointestinal/Abdominal: No Symptoms Reported Genitourinary: No Symptoms Reported Neurological: No Symptoms Reported Integumentary: No Symptoms Reported Hematologic/Lymphatic: No Symptoms Reported Endocrine: No Symptoms Reported All Other Systems: Reviewed and Negative PE - Vitals Vitals: Temperature 98.9 F Pulse Rate [Right Brachial] 48 Pulse Rate 51 Respiratory Rate 18 Blood Pressure [Left Arm] 153/67 Blood Pressure [Standing] 89/49 Blood Pressure [Sitting] 104/53 Blood Pressure [Lying] 111/59 Blood Pressure 148/66 O2 Sat by Pulse Oximetry 100 - General Limitations: No Limitations General Appearance: Alert - Head Head Exam: Normal Inspection - Eyes Eye exam: Normal Appearance - ENT ENT Exam: Normal External Ear Exam - Chest Chest Inspection: Symmetric Chest Wall Rise - Respiratory Respiratory Exam: Normal Lung Sounds Bilat Respiratory Exam: Bilateral Rhonchi, Lower Rhonchi - Cardiovascular Cardiovascular Exam: Bradycardia Pulse: Normal, Radial, Femoral Edema: Normal - Abdominal Exam Abdominal Exam: Normal Bowel Sounds, Soft. negative: Tenderness - Extremities Extremities Exam: Normal Inspection - Back Back Exam: Normal Inspection - Neurologic Neurological Exam: Alert, Oriented X3, CN II-XII Intact. negative: Motor Sensory Deficit - Psychiatric Psychiatric Exam: Normal Affect, Normal Mood - Skin Skin Exam: Normal Color MDM - Additional Information Additional Information Obtained From: Family - Differential Diagnosis Differential Diagnosis: Angina, Myocardial Infarction, Pericarditis, Pancreatitis, Pneumonia, Pulmonary Embolus Course - Treatment Treatment: SEE ORDERS. PATIENT DO NOT WISH TO BE TRANSFER CURRENTLY. HAVE PRESSING THINGS TO TAKE CARE OF AT HOME. D/C AMA. - Consultation Consultation Comments: DISCUSS [facility] WILL TRANSFER PATIENT AND EVALUATE FOR SYMTOMATIC BRADYCARDIA AND POSSIBLE PACE MAKER INSERTION. - Education/Counseling Education/Counseling: Patient, Family Educated On: Diagnosis ROR - Labs Reviewed Laboratory Results Reviewed?: Yes Result Diagrams: 11/01/17 17:24 11/01/17 17:24 Laboratory: WBC 6.5 X10^3/uL (3.6-10.0) 11/01/17 17:24 RBC 4.21 X10^6/uL (4.7-6.0) L 11/01/17 17:24 Hgb 13.8 g/dL (13.5-18.0) 11/01/17 17:24 Hct 38.8 % (42.0-54.0) L 11/01/17 17:24 MCV 92.1 fL (80.0-100.0) 11/01/17 17:24 MCH 32.8 pg (27.0-34.0) 11/01/17 17:24 MCHC 35.6 g/dL (33.0-35.0) H 11/01/17 17:24 RDW 14.3 % (11.6-16.5) 11/01/17 17:24 Plt Count 222 X10^3/uL (150.0-450.0) 11/01/17 17: MPV 7.7 fL (7.4-11.0) 11/01/17 17:24 Neut % (Auto) 52.7 % (42.0-75.0) 11/01/17 17:24 Lymph % (Auto) 38.9 % (21.0-51.0) 11/01/17 17:24 [place] % (Auto) 7.1 % (0.0-13.0) 11/01/17 17:24 Eos % (Auto) 0.6 % (0.9-2.9) L 11/01/17 17:24 Baso % (Auto) 0.7 % (0.2-1.0) 11/01/17 17:24 Neut # (Auto) 3.4 x10^3/uL (2.2-4.8) 11/01/17 17:24 Lymph # (Auto) 2.5 X10^3/uL (1.3-2.9) 11/01/17 17:24 [place] # (Auto) 0.5 x10^3/uL (0.3-0.8) 11/01/17 17:24 Eos # (Auto) 0.0 x10^3/uL (0.0-0.2) 11/01/17 17:24 Baso # (Auto) 0.0 X10^3/uL (0.0-0.1) 11/01/17 17: Absolute Nucleated RBC 0.3 /100WBC 11/01/17 17:24 INR Target Range - 11/01/17 17:24 INR 0.99 (0.8-1.3) 11/01/17 17:24 APTT 26.9 SECONDS (22.9-36.5) 11/01/17 17:24 PTT Comment - 11/01/17 17:24 D-Dimer 294 ng/mL (0-400) 11/01/17 17:24 Sodium 145 mmol/L (136-145) 11/01/17 17:24 Corrected Sodium 146 mmol/L (136-145) H 11/01/17 17:24 Potassium 4.2 mmol/L (3.5-5.1) 11/01/17 17:24 Chloride 107 mmol/L (98-107) 11/01/17 17:24 Carbon Dioxide 28.6 mmol/L (21-32) 11/01/17 17:24 BUN 17 mg/dL (7-18) 11/01/17 17:24 Creatinine 1.65 mg/dL (0.70-1.30) H 11/01/17 17:24 Est GFR (MDRD) Af Amer 52 (>60) L 11/01/17 17:24 Est GFR (MDRD) Non-Af 43 (>60) L 11/01/17 17:24 Glucose 129 mg/dL (65-99) H 11/01/17 17:24 Calcium 9.0 mg/dL (8.5-10.1) 11/01/17 17:24 Corrected Calcium TNP 11/01/17 17:24 Magnesium 2.2 mg/dL (1.7-2.9) 11/01/17 17:24 Total Bilirubin 0.30 mg/dL (0.2-1.0) 11/01/17 17:24 AST 22 Units/L (15-37) 11/01/17 17:24 ALT 28 Units/L (12-78) 11/01/17 17:24 Alkaline Phosphatase 71 Units/L (46-116) 11/01/17 17:24 Creatine Kinase 163 Units/L (39-308) 11/01/17 17:24 CK-MB (CK-2) 3.6 ng/mL (0-4.0) 11/01/17 17:24 CK/CKMB % Calc 2.2 % (<4) 11/01/17 17:24 Troponin I < 0.02 ng/mL (0-1.5) 11/01/17 17:24 Total Protein 7.4 g/dL (6.4-8.2) 11/01/17 17:24 Albumin 3.8 g/dL (3.4-5.0) 11/01/17 17:24 Globulin 3.6 g/dL (2.5-4.5) 11/01/17 17:24 Albumin/Globulin Ratio 1.1 Ratio (1.1-2.1) 11/01/17 17:24 - XRAY XRAY Interpreted by: Radiologist XRAY Findings: REPRT DISCUSS WITH PATIENT. - Diagnosis Discharge Problem: Bradycardia, Near syncope Chest pain Qualifiers: Chest pain type: intercostal pain Qualified Code(s): R07.82 - Intercostal pain - Discharge Plan Disposition: 07 AGAINST MEDICAL ADVICE Condition: Stable - Follow ups/Referrals Follow ups/Referrals: Rodrigo Baez [Primary Care Provider] - 3 days - Instructions
[2017-11-01 17:55] LABS: BLOOD UREA NITROGEN 17 mg/dL (7-18); CARBON DIOXIDE 28.6 mmol/L (21-32); CHLORIDE 107 mmol/L (98-107); COR NA(FOR HYPERGLY) 146 mmol/L (136-145); CREATININE 1.65 mg/dL (0.70-1.30); SODIUM 145 mmol/L (136-145); TROPONIN I < 0.02 ng/mL (0-1.5); eGFR BLACK RACES 52 (>60); eGFR NON BLACK RACES 43 (>60)
[2017-11-01 18:00] LABS: ALANINE AMINOTRANSFERASE 28 Units/L (12-78); ALBUMIN 3.8 g/dL (3.4-5.0); ALKALINE PHOSPHATASE 71 Units/L (46-116); ASPARTATE AMINO TRANSFERASE 22 Units/L (15-37); CKMB % 2.2 % (<4); CREATINE KINASE 163 Units/L (39-308); CREATINE KINASE MB 3.6 ng/mL (0-4.0); MAGNESIUM 2.2 mg/dL (1.7-2.9); TOTAL PROTEIN 7.4 g/dL (6.4-8.2)
--- NOTE | 2017-11-01 18:42 | RAD ---
HISTORY: Chest pain, dizziness Study: Single view chest Comparison: 05/28/2017 Findings: Single portable view is submitted. No infiltrate, effusion or pneumothorax identified. Chronic sterno mayra changes are noted. The soft tissues are unremarkable. IMPRESSION: 1. No acute cardiopulmonary abnormality. Reported By:
[2017-11-01 20:28] VITALS: BP 153/67
[2017-11-02] MEDS ORDERED: ASPIRIN 81 MG CHEWTAB PO ONE (17:35)
== END 2017-11-01 20:40 | disposition left against medical advice (07) ==
LOC: ER 17:09
DX: R00.1 Bradycardia, unspecified (principal); R07.82 Intercostal pain; R55 Syncope and collapse; R94.31 Abnormal electrocardiogram [ECG] [EKG]; Z79.01 Long term (current) use of anticoagulants
CPT/HCPCS: 36415; 71045; 80053; 82550; 82553; 83735; 84484; 85025; 85378; 85610; 85730; 93005; 93010; 99283

== ENCOUNTER 2018-08-28 13:36 | Observation (INO) ==
--- NOTE | 2018-08-28 14:42 | DR.DIZZY ---
HPI Time seen Time Seen by Provider: 08/28/18 14:06 PCP Primary Care Physician: WILNER FOFANA HPI Comment HPI Comment: WORSE TODAY. NO FEVER, DYSURIA OR CHEST PAIN. ORTHOSTATIC HYPOTENSION NOTED IN ED. PULSE RATE LOW ALSO. Complaint Chief Complaint Doctor Comments: WEAK, NEAR SYNCOPAL EPISODES FOR 3 DAYS. Chief Complaint:: PT C/O FEELING FAINT WHEN HE STANDS UP FOR THE PAST 3 DAYS AND ITS WORSE TODAY ,,BR AND HIS BP HAS BEEN < AND > ,,BR Self Treatment fo Chief Complaint: PT DENIES ANY PAIN . BR Nurses Notes Reviewed Nurses Notes Review: Yes Source History Provided: Patient Mode of Arrival Mode of Arrival: Ambulatory Timing Onset of Chief Complaint: 08/26/18 Came on: Suddenly Duration Duration: Constant Duration: Days Location of Weakness Weakness Location: Generalized Context Onset: At rest History of: [place] Stroke Symptoms: Dizziness Severity Severity: Normal activity level Modifying factors Worsens: Change in Position Associated signs and symptoms Associated Signs and Symptoms: Faintness, Near Syncope and Weak PMH PMH Past Medical History: Yes Past Medical History: Coronary Artery Disease, Dyslipidemia and [place] Past Surgical History: Yes Surgical History: Angioplasty/Stents and CABG/Valve Surgery Family History History of Family Medical Conditions: Yes Family Medical History: [place] and Sudden Cardiac Social History Does patient currently use any type of tobacco product: No Have you used tobacco products in the last 12 months: No Type of Tobacco Use: None Does any household member use tobacco: No Alcohol Use: None Do you use any recreational Drugs:: No Lives With: Family Lives Where: Home infectious screening In the last 2 months have you had wt loss of >10#?: NO Have you had fever, night sweats or hemotysis?: No Have you traveled outside the country in the last 6 months?: No Isolation: Standard ROS Review of Systems Constitutional: No Symptoms Reported, Weakness, Fatigue and Loss of Appetite; negative Fever Eyes: No Symptoms Reported ENTM: No Symptoms Reported Respiratoy: No Symptoms Reported and Short of Breath Cardiovascular: No Symptoms Reported Gastrointestinal/Abdominal: No Symptoms Reported Genitourinary: No Symptoms Reported Neurological: No Symptoms Reported Musculoskeletal: No Symptoms Reported Integumentary: No Symptoms Reported Hematologic/Lymphatic: No Symptoms Reported Endocrine: No Symptoms Reported Psychiatric: No Symptoms Reported All Other Systems: Reviewed and Negative PE Vital Signs Vitals: Temperature 97.6 F Pulse Rate [Radial] 54 Pulse Rate 49 Respiratory Rate 18 Blood Pressure [Left Arm] 121/70 Blood Pressure [Standing] 89/49 Blood Pressure [Sitting] 104/53 Blood Pressure [Lying] 111/59 Blood Pressure 156/79 O2 Sat by Pulse Oximetry 100 General Limitations: No Limitations Head Head Exam: Normal Inspection and Atraumatic Eyes Eye exam: Normal Appearance Pupils: Regular, Round: Bilateral and Reactive: Bilateral Sclera/Conjunctival: Normal Inspection: Bilateral ENT ENT Exam: Normal Exam Neck Neck Exam: Normal Inspection Chest Chest Inspection: Symmetric Chest Wall Rise Respiratory Respiratory Exam: Normal Lung Sounds Bilat Respiratory Exam: Bilateral: Rhonchi and Lower: Rhonchi Cardiovascular Cardiovascular Exam: Regular Rate and Normal Rhythm Abdominal Exam Abdominal Exam: Normal Bowel Sounds and Soft; negative Tenderness Rectal Rectal Exam: Deferred Extremeties Extremities Exam: Normal Inspection Back Back Exam: Normal Inspection Neurologic Neurological Exam: Alert and Oriented X3; negative Motor Sensory Deficit Patient Oriented To: Person, Place and Time Cranial Nerve Exam: EOM Function (II, III, IV, ): Normal, Facial Sensation (V): Normal, Facial Palsy (VII): Normal, Gag reflex (XI): Normal and Tongue Deviation: Normal Motor Strength - LUE: 5/5 Motor Strength - RUE: 5/5 Motor Strength - LLE: 5/5 Motor Strength - RLE: 5/5 Upper Motor Neuron Exam: Babinski Sign: Normal Psychiatric Psychiatric Exam: Normal Affect and Normal Mood Skin Skin Exam: Warm, Dry, Intact and Normal Color MDM Additional Information Obtained Additional Information Obtained From: Family Differential Diagnosis Differential Diagnosis: Anemia, CVA, Dehydration, Dysrhythmia, Electrolyte disorder, Hypoglycemia, Myocardial infarction, Pulmonary embolus, TIA and Central Vertigo COURSE Treatment Treatment: SEE ORDERS. Consultation Consultation Comments: PATIENT DISCUSS WITH DR. DARBY. HE WILL ADMIT PATIENT. Education/Counseling Education/Counseling: Patient and Family Educated On: Diagnosis ROR Labs Reviewed Laboratory Results Reviewed?: Yes Result Diagrams: 08/29/18 04:28 08/29/18 04:28 Laboratory: WBC 5.2 X10^3/uL (3.6-10.0) 08/29/18 04:28 RBC 4.03 X10^6/uL (4.7-6.0) L 08/29/18 04:28 Hgb 13.4 g/dL (13.5-18.0) L 08/29/18 04:28 Hct 39.0 % (42.0-54.0) L 08/29/18 04:28 MCV 96.8 fL (80.0-100.0) 08/29/18 04:28 MCH 33.3 pg (27.0-34.0) 08/29/18 04:28 MCHC 34.4 g/dL (33.0-35.0) 08/29/18 04:28 RDW 14.5 % (11.6-16.5) 08/29/18 04:28 Plt Count 171 X10^3/uL (150.0-450.0) 08/29/18 04:28 MPV 7.7 fL (7.4-11.0) 08/29/18 04:28 Neut % (Auto) 48.0 % (42.0-75.0) 08/29/18 04:28 Lymph % (Auto) 40.7 % (21.0-51.0) 08/29/18 04:28 [place] % (Auto) 10.1 % (0.0-13.0) 08/29/18 04:28 Eos % (Auto) 0.8 % (0.9-2.9) L 08/29/18 04:28 Baso % (Auto) 0.4 % (0.2-1.0) 08/29/18 04:28 Neut # (Auto) 2.5 x10^3/uL (2.2-4.8) 08/29/18 04:28 Lymph # (Auto) 2.1 X10^3/uL (1.3-2.9) 08/29/18 04:28 [place] # (Auto) 0.5 x10^3/uL (0.3-0.8) 08/29/18 04:28 Eos # (Auto) 0.0 x10^3/uL (0.0-0.2) 08/29/18 04:28 Baso # (Auto) 0.0 X10^3/uL (0.0-0.1) 08/29/18 04:28 Absolute Nucleated RBC 0.1 /100WBC 08/29/18 04:28 D-Dimer 108 ng/mL (0-400) 08/28/18 15:05 Sodium 142 mmol/L (136-145) 08/29/18 04:28 Corrected Sodium TNP 08/29/18 04:28 Potassium 4.1 mmol/L (3.5-5.1) 08/29/18 04:28 Chloride 105 mmol/L (98-107) 08/29/18 04:28 Carbon Dioxide 29.0 mmol/L (21-32) 08/29/18 04:28 BUN 21 mg/dL (7-18) H 08/29/18 04:28 Creatinine 1.67 mg/dL (0.70-1.30) H 08/29/18 04:28 Est GFR (MDRD) Af Amer 51 (>60) L 08/29/18 04:28 Est GFR (MDRD) Non-Af 42 (>60) L 08/29/18 04:28 Glucose 78 mg/dL (65-99) 08/29/18 04:28 Calcium 9.2 mg/dL (8.5-10.1) 08/29/18 04:28 Corrected Calcium 9.8 mg/dL (8.5-10.1) 08/29/18 04:28 Magnesium 2.1 mg/dL (1.7-2.9) 08/29/18 04:28 Total Bilirubin 0.40 mg/dL (0.2-1.0) 08/29/18 04:28 AST 19 Units/L (15-37) 08/29/18 04:28 ALT 24 Units/L (12-78) 08/29/18 04:28 Alkaline Phosphatase 47 Units/L (46-116) 08/29/18 04:28 Creatine Kinase 72 Units/L (39-308) 08/29/18 04:28 CK-MB (CK-2) 1.3 ng/mL (0-4.0) 08/29/18 04:28 CK/CKMB % Calc 1.8 % (<4) 08/29/18 04:28 Troponin I < 0.02 ng/mL (0-1.5) 08/29/18 04:28 Total Protein 6.4 g/dL (6.4-8.2) 08/29/18 04:28 Albumin 3.3 g/dL (3.4-5.0) L 08/29/18 04:28 Globulin 3.1 g/dL (2.5-4.5) 08/29/18 04:28 Albumin/Globulin Ratio 1.1 Ratio (1.1-2.1) 08/29/18 04:28 Triglycerides 147 mg/dL (0-150) 08/29/18 04:28 Cholesterol 167 mg/dL (0-200) 08/29/18 04:28 LDL Cholesterol, Calc 92 mg/dL (0-100) 08/29/18 04:28 HDL Cholesterol 46 mg/dL (40-60) 08/29/18 04:28 Cholesterol/HDL Ratio 3.6 (0.0-5.0) 08/29/18 04:28 Specimen Type Clean catch urine 08/28/18 14:42 Urine Color Yellow (YELLOW) 08/28/18 14:42 Urine Appearance Clear (CLEAR) 08/28/18 14:42 Urine pH 7.0 (5.0 - 8.0) 08/28/18 14:42 Ur Specific [place] 1.010 (1.000-1.030) 08/28/18 14:42 Urine Protein Negative (NEGATIVE) 08/28/18 14:42 Urine Glucose (UA) Negative (NEGATIVE) 08/28/18 14:42 Urine Ketones Negative (NEGATIVE) 08/28/18 14:42 Urine Occult Blood Negative (NEGATIVE) 08/28/18 14:42 Urine Nitrite Negative (NEGATIVE) 08/28/18 14:42 Urine Bilirubin Negative (NEGATIVE) 08/28/18 14:42 Urine Urobilinogen Normal (NORMAL) 08/28/18 14:42 Ur Leukocyte Esterase Negative (NEGATIVE) 08/28/18 14:42 XRAY XRAY Findings: NOTED REPORT(SEE REPORT ON RECORD) AND DISCUSS WITH PATIENT AND HIS FAMILY. EKG Rate: 47 [place]: LAD Rhythm: SB Block: IVCD Instructions Instructions: Cholesterol, Etma-aq-Wrlq How to Take Your Blood Pressure, Fipt-et-Dgvl Vertigo, Ahrp-hf-Krup Hypotension, Ccko-lt-Bxhz Bradycardia, Adult Near-Syncope, Vxeq-wo-Nbbd Hypertension, Gseb-ug-Tsmj Preventing Hypertension Dizziness, Mahs-sj-Rpyd Forms: Patient Portal
[2018-08-28 15:09] LABS: BILIRUBIN,URINE NEGATIVE (NEGATIVE); BLOOD/HEMOGLOBIN,URINE NEGATIVE (NEGATIVE); GLUCOSE, URINE NEGATIVE (NEGATIVE); KETONES,URINE NEGATIVE (NEGATIVE); LEUKOCYTE ESTERASE ,URINE NEGATIVE (NEGATIVE); NITRITES,URINE NEGATIVE (NEGATIVE); PROTEIN,URINE NEGATIVE (NEGATIVE); UROBILINOGEN,URINE NORMAL (NORMAL)
[2018-08-28 15:15] LABS: APPEARANCE,URINE CLEAR (CLEAR); COLOR,URINE YELLOW (YELLOW)
[2018-08-28 15:17] LABS: BASOPHILS % (AUTO) 0.3 % (0.2-1.0); EOSINOPHILS % (AUTO) 0.4 % (0.9-2.9); HEMATOCRIT 38.5 % (42.0-54.0); HEMOGLOBIN 13.2 g/dL (13.5-18.0); LYMPHOCYTES # (AUTO) 1.7 X10^3/uL (1.3-2.9); LYMPHOCYTES % (AUTO) 26.5 % (21.0-51.0); MEAN CORPUSCULAR HGB CONC 34.4 g/dL (33.0-35.0); MEAN CORPUSCULAR VOLUME 95.9 fL (80.0-100.0); MEAN PLATELET VOLUME 7.6 fL (7.4-11.0); MONOCYTES # (AUTO) 0.5 x10^3/uL (0.3-0.8); MONOCYTES % (AUTO) 8.1 % (0.0-13.0); NEUTROPHILS % (AUTO) 64.7 % (42.0-75.0); PLATELET COUNT 174 X10^3/uL (150.0-450.0); RED BLOOD COUNT 4.02 X10^6/uL (4.7-6.0); RED CELL DISTRIBUTION WIDTH 14.8 % (11.6-16.5); WHITE BLOOD COUNT 6.3 X10^3/uL (3.6-10.0)
--- NOTE | 2018-08-28 15:19 | CT ---
HISTORY: Dizziness, ataxia Study: CT HEAD WITHOUT CONTRAST Comparison: None Technique: Multiple axial images of the brain were obtained from the skull base to the vertex without administration of IV contrast. Findings: There is no evidence of an acute intracranial hemorrhage or extra-axial fluid collection. There is no mass effect, midline shift or cerebral edema. Age-appropriate cortical volume loss is noted. 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 Attention to the posterior fossa reveals no evidence of cerebellar edema, mass effect upon the 4th ventricle, cerebellar pontine angle lesion or expansile IAC lesion. There is no acute, large artery territorial infarction. The imaged paranasal sinuses and mastoid air cells are clear and the calvarium is intact. The ventricular size is normal, with no findings of acute hydrocephalus. IMPRESSION: 1. No acute intracranial process can be identified. Other chronic age-related involutional changes of the brain as detailed above. Reported By:
--- NOTE | 2018-08-28 15:39 | RAD ---
History: Chest pain Exam: Portable chest Comparison: 11/01/2017 Technique: A portable AP chest was obtained. Findings: The left ventricle is mildly enlarged but unchanged. The pulmonary vessels are normal. Postop changes are seen along the mediastinum and sternum. There is mild linear scarring along the lung bases which is unchanged. No consolidation or effusion is seen. IMPRESSION: Stable chronic changes with no acute abnormality seen Reported By:
[2018-08-28 15:53] LABS: BLOOD UREA NITROGEN 24 mg/dL (7-18); CALCIUM 9.4 mg/dL (8.5-10.1); CARBON DIOXIDE 29.8 mmol/L (21-32); CHLORIDE 103 mmol/L (98-107); CREATININE 1.81 mg/dL (0.70-1.30); SODIUM 140 mmol/L (136-145); TROPONIN I < 0.02 ng/mL (0-1.5); eGFR NON BLACK RACES 38 (>60)
[2018-08-28 16:08] LABS: ALANINE AMINOTRANSFERASE 28 Units/L (12-78); ALBUMIN 3.6 g/dL (3.4-5.0); ALKALINE PHOSPHATASE 49 Units/L (46-116); ASPARTATE AMINO TRANSFERASE 19 Units/L (15-37); CKMB % 1.7 % (<4); CREATINE KINASE 89 Units/L (39-308); CREATINE KINASE MB 1.5 ng/mL (0-4.0); TOTAL PROTEIN 6.6 g/dL (6.4-8.2)
[2018-08-28] MEDS ORDERED: NS 1000 ML 1,000 ML IV SCH (18:00)
[2018-08-28 21:45] VITALS: BMI 28.8
[2018-08-28 23:27] LABS: CKMB % 1.7 % (<4); CREATINE KINASE 72 Units/L (39-308); CREATINE KINASE MB 1.2 ng/mL (0-4.0); TROPONIN I < 0.02 ng/mL (0-1.5)
[2018-08-29 05:19] LABS: BASOPHILS % (AUTO) 0.4 % (0.2-1.0); EOSINOPHILS % (AUTO) 0.8 % (0.9-2.9); HEMOGLOBIN 13.4 g/dL (13.5-18.0); LYMPHOCYTES # (AUTO) 2.1 X10^3/uL (1.3-2.9); LYMPHOCYTES % (AUTO) 40.7 % (21.0-51.0); MEAN CORPUSCULAR HEMOGLOBIN 33.3 pg (27.0-34.0); MEAN CORPUSCULAR HGB CONC 34.4 g/dL (33.0-35.0); MEAN CORPUSCULAR VOLUME 96.8 fL (80.0-100.0); MEAN PLATELET VOLUME 7.7 fL (7.4-11.0); MONOCYTES # (AUTO) 0.5 x10^3/uL (0.3-0.8); MONOCYTES % (AUTO) 10.1 % (0.0-13.0); NEUTROPHILS # (AUTO) 2.5 x10^3/uL (2.2-4.8); PLATELET COUNT 171 X10^3/uL (150.0-450.0); RED BLOOD COUNT 4.03 X10^6/uL (4.7-6.0); RED CELL DISTRIBUTION WIDTH 14.5 % (11.6-16.5); WHITE BLOOD COUNT 5.2 X10^3/uL (3.6-10.0)
[2018-08-29 05:29] LABS: ALANINE AMINOTRANSFERASE 24 Units/L (12-78); ALBUMIN 3.3 g/dL (3.4-5.0); ALKALINE PHOSPHATASE 47 Units/L (46-116); ASPARTATE AMINO TRANSFERASE 19 Units/L (15-37); BLOOD UREA NITROGEN 21 mg/dL (7-18); CALCIUM 9.2 mg/dL (8.5-10.1); CHLORIDE 105 mmol/L (98-107); CHOL/HDL RATIO 3.6 (0.0-5.0); CHOLESTEROL 167 mg/dL (0-200); CKMB % 1.8 % (<4); COR CA(FOR HYPOALB) 9.8 mg/dL (8.5-10.1); CREATINE KINASE 72 Units/L (39-308); CREATINE KINASE MB 1.3 ng/mL (0-4.0); CREATININE 1.67 mg/dL (0.70-1.30); HDL CHOLESTEROL 46 mg/dL (40-60); MAGNESIUM 2.1 mg/dL (1.7-2.9); SODIUM 142 mmol/L (136-145); TOTAL PROTEIN 6.4 g/dL (6.4-8.2); TRIGLYCERIDES 147 mg/dL (0-150); TROPONIN I < 0.02 ng/mL (0-1.5); eGFR NON BLACK RACES 42 (>60)
[2018-08-29 11:53] VITALS: BP 121/70
--- NOTE | 2018-09-08 20:59 | DR.CARTERS ---
Short Stay Summary - Admission Date Date of Admission: 08/28/18 - Discharge Date Discharge Date: 08/29/18 - Admission Diagnoses (1) Vertigo Status: Acute (2) Generalized weakness Status: Acute (3) Chest pain, rule out acute myocardial infarction Status: Acute (4) Near syncope Status: Acute - Hospital Course Hospital Course: IS A 83 YEAR OLD PATIENT OF OURS WHO PRESENTED TO THE EMERGENCY ROOM WITH COMPLAINTS OF GENERALIZED WEAKNESS, DIZZINESS, AND NEAR SYNCOPE WHEN HE STANDS. HE REPORTED THAT SYMPTOMS STARTED THREE DAYS PRIOR TO ARRIVAL. HE REPORTS THAT HIS BLOOD PRESSURE HAS GONE FROM EXTREME LOWS TO EXTREME HIGHS. ON ARRIVAL, VITALS WERE 97.0-58-22-97%-118/59. LABS WERE OBTAINED. ABNORMAL LAB VALUES INCLUDE THE FOLLOWING: RBC 4.02, HGB 13.2, HCT 38.5, BUN 24, CREATININE 1.81. CHEST XRAY OBTAINED AND REVEALED: STABLE CHRONIC CHANGES WITH NO ACUTE ABNORMALITY SEEN. EKG REVEALED: SINUS RHYTHM WITH HR 52. A BRAIN CT WAS OBTAINED AND REVEALED: No acute intracranial process can be identified. Other chronic age-related involutional changes of the brain noted. HE WAS STARTED ON NORMAL SALINE AT 30ML/HR. HE WAS ADMITTED FOR FURTHER EVALUATION AND TREATMENT OF GENERALI ZED WEAKNESS, NEAR SYNCOPE, AND CHEST PAIN, RULE OUT ACUTE DE. WE PLANNED TO OBTAIN SERIAL CARDIAC ENZYMES AND EKGS WELL FOLLOW UP WITH AM LABS AND CONTINUE TO MONITOR. ON THE MORNING FOLLOWING ADMISSION, PATIENT IS ALERT AND ORIENTED AND REPORTS FEELING WELL. HE DENIES CHEST PAIN THIS MORNING, BUT DOES REPORT DIZZINESS AT TIMES. HIS VITALS THIS MORNING ARE 97.8-52-18-97%-133/68. CARDIAC ENZYMES AND EKGS WITHIN NORMAL LIMITS. FASTING LIPID PANEL IS NORMAL. WE PLANNED FOR DISCHARGE. INSTRUCTIONS FOR MEDICATIONS AND FOLLOW UP WERE DISCUSSED WITH PATIENT AND FAMILY. THEY VERBALIZED UNDERSTANDING. HE WAS DISCHARGED ON MECLIZINE 12.5MG BID PRN FOR VERTIGO. HE WAS ALSO INSTRUCTED TO CONTINUE HIS PREVIOUSLY PRESCRIBED MEDICATIONS. HE WAS INSTRUCTED TO FOLLOW UP WITH US IN THE OFFICE IN 1 WEEK. PATIENT WAS DISCHARGED HOME IN STABLE CONDITION. - Discharge Medications Discharge Medications: Home Medication List bupropion HCl [Wellbutrin XL] 300 mg PO DAILY 08/28/18 [History] celecoxib [Celebrex] 200 mg PO DAILY 08/28/18 [History] cholecalciferol (vitamin D3) [Vitamin D3] 5,000 unit PO DAILY 08/28/18 [History] clonazepam 0.5 mg PO HS 08/28/18 [History] diclofenac sodium [Voltaren] 1 applic TOPICAL PRN PRN 08/28/18 [History] meclizine 12.5 mg PO BID PRN #60 tab 08/29/18 [Rx] Prescriptions: meclizine Rodrigo Baez - Discharge Plan Disposition: HOME, SELF-CARE Condition: Stable Prescriptions: meclizine 12.5 mg PO BID PRN #60 tab PRN Reason: - Follow up/Referrals Follow up/Referrals: Rodrigo Baez [Primary Care Provider] - 09/04/18 9:50 am - Instructions Instructions: Cholesterol, Bbxu-ks-Wyil, How to Take Your Blood Pressure, Bzvf-py-Yyxo, Vertigo, Qngb-nm-Oyja, Hypotension, Yzcw-sc-Mkbx, Bradycardia, Adult, Near-Syncope, Utmz-nm-Mfkj, Hypertension, Bagw-qf-Uxpo, Preventing Hypertension, Dizziness, Ztfy-sf-Lirg Additional Instructions: DIET TOLERATED. ACTIVITY TOLERATED. Forms: Patient Portal
== END 2018-08-29 12:00 | disposition home or self-care (01) ==
LOC: MED/SURG 13:39 → ER 13:39 → MED/SURG 17:43
PROVIDERS: ADMIT Internal Medicine; ATTEND Internal Medicine
CPT/HCPCS: 36415; 70450; 71010; 71045; 80053; 80061; 81003; 82550; 82553; 83735; 84484; 85025; 85378; 93005; 94760; 96365; 99282; 99284; A4222; G0378; J7030

== ENCOUNTER 2021-06-28 11:59 | Observation (INO) ==
[2021-06-28 15:42] LABS: BASOPHILS % (AUTO) 0.3 % (0.2-1.0); EOSINOPHILS % (AUTO) 0.3 % (0.9-2.9); HEMATOCRIT 43.1 % (42.0-54.0); LYMPHOCYTES # (AUTO) 2.6 X10^3/uL (1.3-2.9); MEAN CORPUSCULAR HEMOGLOBIN 32.3 pg (27.0-34.0); MEAN CORPUSCULAR HGB CONC 34.8 g/dL (33.0-35.0); MEAN CORPUSCULAR VOLUME 92.8 fL (80.0-100.0); MEAN PLATELET VOLUME 7.4 fL (7.4-11.0); MONOCYTES # (AUTO) 0.9 x10^3/uL (0.3-0.8); MONOCYTES % (AUTO) 7.9 % (0.0-13.0); NEUTROPHILS # (AUTO) 7.3 x10^3/uL (2.2-4.8); NEUTROPHILS % (AUTO) 67.5 % (42.0-75.0); PLATELET COUNT 198 X10^3/uL (150.0-450.0); RED BLOOD COUNT 4.64 X10^6/uL (4.7-6.0); RED CELL DISTRIBUTION WIDTH 14.2 % (11.6-16.5); WHITE BLOOD COUNT 10.8 X10^3/uL (3.6-10.0)
[2021-06-28 15:53] LABS: ALBUMIN 3.3 g/dL (3.4-5.0); CALCIUM 9.1 mg/dL (8.5-10.1); COR CA(FOR HYPOALB) 9.7 mg/dL (8.5-10.1); CREATININE 1.52 mg/dL (0.70-1.30); TOTAL PROTEIN 6.8 g/dL (6.4-8.2)
[2021-06-28 16:45] LABS: ABG ALLEN TEST POS; ABG BASE EXCESS 4.9 mmol/L (-2.0-2.0); ABG HCO3 29.2 mmol/L (22-26)
--- NOTE | 2021-06-28 17:52 | RAD ---
HISTORYCOVID POSITIVE, PT HAS HAD BOTH MODERNA SHOTSSTUDYCHEST, 1 VIEWCOMPARISONJune 2020TECHNIQUEChest radiographic imaging, AP portable projection, 1 imageFINDINGSNo cardiomegaly.Status post median sternotomy/CABG.No focal consolidation.Hazy bilateral airspace opacities.No pleural effusion.No pneumothorax.No acute osseous abnormality.IMPRESSIONHazy bilateral airspace opacities are consistent with the given history of a COVID-19 respiratory infection.Electronically signed by: Zeyad Lang (Jun 28, 2021 17:50:21)
[2021-06-28 18:00] VITALS: BMI 25.9
[2021-06-28] MEDS ORDERED: TYLENOL 325 MG TAB PO ONE (18:00)
[2021-06-28] MEDS ORDERED: SOLU-Medrol 125 MG VIAL IVP ONE (18:00)
[2021-06-28] MEDS ORDERED: BENADRYL INJ 50 MG VIAL IVP ONE (18:00)
[2021-06-28] MEDS ORDERED: NS 1,000 ML IV 1,000 ML IV ONE ×2 (18:00)
[2021-06-28] MEDS ORDERED: ACCUNEB 1.25 MG NEBULE NEB PRN (18:03)
[2021-06-28] MEDS ORDERED: REGEN-COV VIAL 10 ML, DRUG FILTER EXTENSION SET * 1 EA in NS 100 ML IV 100 ML IV ONE ×2 (18:30)
[2021-06-28] MEDS ORDERED: ZOFRAN INJ 4 MG VIAL IVP PRN (19:02)
[2021-06-28] MEDS ORDERED: PHENERGAN INJ 25 MG IM PRN (19:02)
[2021-06-28] MEDS: NS 1,000 ML IV 1,000 ML IV SCH (20:26)
[2021-06-29] MEDS ORDERED: ROBITUSSIN DM PO PRN (04:30)
[2021-06-29] MEDS: NS 1,000 ML IV 1,000 ML IV SCH ×2 (04:33→12:26)
[2021-06-29 04:51] LABS: BASOPHILS % (AUTO) 0.1 % (0.2-1.0); HEMATOCRIT 37.9 % (42.0-54.0); HEMOGLOBIN 13.1 g/dL (13.5-18.0); LYMPHOCYTES % (AUTO) 16.2 % (21.0-51.0); MEAN CORPUSCULAR HEMOGLOBIN 31.9 pg (27.0-34.0); MEAN CORPUSCULAR HGB CONC 34.5 g/dL (33.0-35.0); MEAN CORPUSCULAR VOLUME 92.4 fL (80.0-100.0); MEAN PLATELET VOLUME 7.8 fL (7.4-11.0); MONOCYTES # (AUTO) 0.1 x10^3/uL (0.3-0.8); MONOCYTES % (AUTO) 1.5 % (0.0-13.0); NEUTROPHILS # (AUTO) 5.1 x10^3/uL (2.2-4.8); NEUTROPHILS % (AUTO) 82.2 % (42.0-75.0); PLATELET COUNT 184 X10^3/uL (150.0-450.0); RED CELL DISTRIBUTION WIDTH 14.2 % (11.6-16.5); WHITE BLOOD COUNT 6.2 X10^3/uL (3.6-10.0)
[2021-06-29 05:03] LABS: ALANINE AMINOTRANSFERASE 46 Units/L (12-78); ALBUMIN 2.6 g/dL (3.4-5.0); ALKALINE PHOSPHATASE 70 Units/L (46-116); ASPARTATE AMINO TRANSFERASE 20 Units/L (15-37); BLOOD UREA NITROGEN 23 mg/dL (7-18); CALCIUM 8.5 mg/dL (8.5-10.1); CHLORIDE 110 mmol/L (98-107); COR CA(FOR HYPOALB) 9.6 mg/dL (8.5-10.1); COR NA(FOR HYPERGLY) 145 mmol/L (136-145); SODIUM 143 mmol/L (136-145); TOTAL PROTEIN 5.8 g/dL (6.4-8.2); eGFR NON BLACK RACES 56 (>60)
[2021-06-29] MEDS: SOLU-Medrol 40 MG VIAL IVP SCH ×2 (05:38→13:26)
[2021-06-29] MEDS ORDERED: LOVENOX INJ 40 MG SYR SC SCH (10:00)
[2021-06-29 12:26] VITALS: BP 154/70
[2021-06-29] MEDS ORDERED: KLONOPIN TAB 0.5 MG PO SCH (21:00)
[2021-06-29] MEDS ORDERED: PLAVIX PO SCH (21:00)
[2021-06-29] MEDS ORDERED: LIPITOR TAB 40 MG PO SCH (21:00)
[2021-06-30] MEDS ORDERED: NEURONTIN CAP 300 MG PO SCH (09:00)
--- NOTE | 2021-06-30 09:47 | W.DIS.FURT ---
Summary of Discharge Discharge Summary of Date Date of Exam: 06/29/21 Admission Date Date of Admission: 06/28/21 Admission Diagnosis Hospital Course: Pt is a 85 year old male admitted for COVID-19, dehydration, acute hypotension. He was a direct admit from Dr Baez's office. Pt was treated and given Regen- COV infusion, IVF, and Solumedrol 80mg Q8h. Pt responded well to treatments. Ivania exam, pt was sitting in recliner in no acute distress. He reports feeling much better and did not require any supplemental O2. Appetite and strength improved, BP wnl. Pt was observed throughout the day without any concerns and discharged in the afternoon in stable condition. Rx prednisone x 5 days. Instructed to follow up with pcp in 3-5 days. Vital Signs: Vital Signs (72 hours) 06/28/21 13:35 06/28/21 16:00 06/28/21 18:11 Temperature 98 F Pulse Rate Pulse Rate [Apical] 50 L 51 L Respiratory Rate 15 15 15 Blood Pressure Blood Pressure [Left Arm] 141/68 142/65 O2 Sat by Pulse Oximetry 97 06/28/21 20:00 06/28/21 22:00 06/28/21 22:15 Temperature 98 F Pulse Rate 48 L 48 L Pulse Rate [Apical] 52 L Respiratory Rate 18 20 21 Blood Pressure 148/67 Blood Pressure [Left Arm] 134/63 O2 Sat by Pulse Oximetry 97 95 96 06/28/21 22:30 06/28/21 22:45 06/28/21 23:00 Temperature Pulse Rate 46 L 45 L 46 L Pulse Rate [Apical] Respiratory Rate 20 20 20 Blood Pressure 143/65 Blood Pressure [Left Arm] O2 Sat by Pulse Oximetry 95 95 93 L 06/28/21 23:15 06/28/21 23:30 06/28/21 23:45 Temperature Pulse Rate 48 L 47 L 51 L Pulse Rate [Apical] Respiratory Rate 21 20 15 Blood Pressure Blood Pressure [Left Arm] O2 Sat by Pulse Oximetry 95 95 96 06/29/21 00:00 06/29/21 00:01 06/29/21 00:15 Temperature 98.2 F Pulse Rate 44 L 47 L 45 L Pulse Rate [Apical] 52 L Respiratory Rate 15 14 0 L Blood Pressure 172/74 Blood Pressure [Left Arm] 136/63 O2 Sat by Pulse Oximetry 94 L 96 96 06/29/21 00:30 06/29/21 00:45 06/29/21 01:00 Temperature Pulse Rate 46 L 46 L 48 L Pulse Rate [Apical] Respiratory Rate 9 L 8 L 8 L Blood Pressure 136/63 Blood Pressure [Left Arm] O2 Sat by Pulse Oximetry 95 96 94 L 06/29/21 01:15 06/29/21 01:30 06/29/21 01:45 Temperature Pulse Rate 57 L 50 L 53 L Pulse Rate [Apical] Respiratory Rate 27 H 16 3 L Blood Pressure Blood Pressure [Left Arm] O2 Sat by Pulse Oximetry 96 96 94 L 06/29/21 02:00 06/29/21 02:15 06/29/21 02:30 Temperature Pulse Rate 53 L 53 L 52 L Pulse Rate [Apical] Respiratory Rate 4 L 20 19 Blood Pressure 127/59 Blood Pressure [Left Arm] O2 Sat by Pulse Oximetry 93 L 93 L 94 L 06/29/21 02:45 06/29/21 03:00 06/29/21 03:15 Temperature Pulse Rate 53 L 55 L 52 L Pulse Rate [Apical] Respiratory Rate 21 19 16 Blood Pressure 134/94 Blood Pressure [Left Arm] O2 Sat by Pulse Oximetry 94 L 92 L 95 06/29/21 03:30 06/29/21 03:45 06/29/21 04:00 Temperature 98.1 F Pulse Rate 50 L 51 L 51 L Pulse Rate [Apical] 42 L Respiratory Rate 18 19 19 Blood Pressure 143/63 Blood Pressure [Left Arm] 161/72 O2 Sat by Pulse Oximetry 97 97 95 06/29/21 04:15 06/29/21 04:35 06/29/21 04:45 Temperature Pulse Rate 52 L 53 L 47 L Pulse Rate [Apical] Respiratory Rate 20 29 H 17 Blood Pressure Blood Pressure [Left Arm] O2 Sat by Pulse Oximetry 96 96 97 06/29/21 05:00 06/29/21 05:01 06/29/21 05:15 Temperature Pulse Rate 52 L 49 L 44 L Pulse Rate [Apical] Respiratory Rate 22 18 11 L Blood Pressure 161/72 Blood Pressure [Left Arm] O2 Sat by Pulse Oximetry 96 98 95 06/29/21 05:30 06/29/21 05:45 06/29/21 06:00 Temperature Pulse Rate 43 L 50 L 47 L Pulse Rate [Apical] Respiratory Rate 17 17 15 Blood Pressure Blood Pressure [Left Arm] O2 Sat by Pulse Oximetry 95 97 96 06/29/21 06:01 06/29/21 06:15 06/29/21 06:30 Temperature Pulse Rate 50 L 52 L 51 L Pulse Rate [Apical] Respiratory Rate 18 18 21 Blood Pressure 141/63 Blood Pressure [Left Arm] O2 Sat by Pulse Oximetry 96 95 94 L 06/29/21 06:45 06/29/21 07:00 06/29/21 07:15 Temperature Pulse Rate 51 L 47 L 48 L Pulse Rate [Apical] Respiratory Rate 19 18 16 Blood Pressure 157/70 Blood Pressure [Left Arm] O2 Sat by Pulse Oximetry 94 L 94 L 95 06/29/21 07:30 06/29/21 08:08 06/29/21 08:11 Temperature Pulse Rate 56 L 66 60 Pulse Rate [Apical] Respiratory Rate 23 Blood Pressure 157/71 Blood Pressure [Left Arm] O2 Sat by Pulse Oximetry 96 96 98 06/29/21 08:30 06/29/21 09:00 06/29/21 09:30 Temperature Pulse Rate 57 L 59 L 56 L Pulse Rate [Apical] Respiratory Rate 27 H 31 H 31 H Blood Pressure Blood Pressure [Left Arm] O2 Sat by Pulse Oximetry 94 L 96 96 06/29/21 09:36 06/29/21 12:13 06/29/21 13:00 Temperature Pulse Rate 58 L 49 L 49 L Pulse Rate [Apical] Respiratory Rate 29 H 23 32 H Blood Pressure 141/70 154/70 Blood Pressure [Left Arm] O2 Sat by Pulse Oximetry 98 95 95 06/29/21 14:00 06/29/21 15:00 06/29/21 16:00 Temperature Pulse Rate 48 L 45 L 44 L Pulse Rate [Apical] Respiratory Rate 23 23 29 H Blood Pressure Blood Pressure [Left Arm] O2 Sat by Pulse Oximetry 97 96 97 Labs: Laboratory Last Values WBC 6.2 X10^3/uL (3.6-10.0) 06/29/21 04:28 RBC 4.10 X10^6/uL (4.7-6.0) L 06/29/21 04:28 Hgb 13.1 g/dL (13.5-18.0) L 06/29/21 04:28 Hct 37.9 % (42.0-54.0) L 06/29/21 04:28 MCV 92.4 fL (80.0-100.0) 06/29/21 04:28 MCH 31.9 pg (27.0-34.0) 06/29/21 04:28 MCHC 34.5 g/dL (33.0-35.0) 06/29/21 04:28 RDW 14.2 % (11.6-16.5) 06/29/21 04:28 Plt Count 184 X10^3/uL (150.0-450.0) 06/29/21 04:28 MPV 7.8 fL (7.4-11.0) 06/29/21 04:28 Neut % (Auto) 82.2 % (42.0-75.0) H 06/29/21 04:28 Lymph % (Auto) 16.2 % (21.0-51.0) L 06/29/21 04:28 [place] % (Auto) 1.5 % (0.0-13.0) 06/29/21 04:28 Eos % (Auto) 0.0 % (0.9-2.9) L 06/29/21 04:28 Baso % (Auto) 0.1 % (0.2-1.0) L 06/29/21 04:28 Neut # (Auto) 5.1 x10^3/uL (2.2-4.8) H 06/29/21 04:28 Lymph # (Auto) 1.0 X10^3/uL (1.3-2.9) L 06/29/21 04:28 [place] # (Auto) 0.1 x10^3/uL (0.3-0.8) L 06/29/21 04:28 Eos # (Auto) 0.0 x10^3/uL (0.0-0.2) 06/29/21 04:28 Baso # (Auto) 0.0 X10^3/uL (0.0-0.1) 06/29/21 04:28 Absolute Nucleated RBC 0.0 /100WBC 06/29/21 04:28 Sample Site Lra 06/28/21 16:41 ABG pH 7.460 (7.35-7.45) H 06/28/21 16:41 ABG pCO2 41.0 mmHg (35.0-45.0) 06/28/21 16:41 ABG pO2 63.0 mmHg (80.0-100.0) L 06/28/21 16:41 ABG HCO3 29.2 mmol/L (22-26) H 06/28/21 16:41 ABG O2 Saturation 93.0 % (90-100) 06/28/21 16:41 ABG Base Excess 4.9 mmol/L (-2.0-2.0) H 06/28/21 16:41 Franki Test Pos 06/28/21 16:41 A-a Gradient 35.0 mmHg 06/28/21 16:41 FiO2 21.0 06/28/21 16:41 Blood Gas Comments 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, 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 06/28/21 16:41 Sodium 143 mmol/L (136-145) 06/29/21 04:28 Corrected Sodium 145 mmol/L (136-145) 06/29/21 04:28 Potassium 4.7 mmol/L (3.5-5.1) 06/29/21 04:28 Chloride 110 mmol/L (98-107) H 06/29/21 04:28 Carbon Dioxide 26.0 mmol/L (21-32) 06/29/21 04:28 BUN 23 mg/dL (7-18) H 06/29/21 04:28 Creatinine 1.30 mg/dL (0.70-1.30) 06/29/21 04:28 Est GFR (MDRD) Af Amer > 60 (>60) 06/29/21 04:28 Est GFR (MDRD) Non-Af 56 (>60) L 06/29/21 04:28 Glucose 173 mg/dL (65-99) H 06/29/21 04:28 Calcium 8.5 mg/dL (8.5-10.1) 06/29/21 04:28 Corrected Calcium 9.6 mg/dL (8.5-10.1) 06/29/21 04:28 Ferritin 116 ng/mL (26-388) 06/28/21 15:30 Total Bilirubin 0.30 mg/dL (0.2-1.0) 06/29/21 04:28 AST 20 Units/L (15-37) 06/29/21 04:28 ALT 46 Units/L (12-78) 06/29/21 04:28 Alkaline Phosphatase 70 Units/L (46-116) 06/29/21 04:28 C-Reactive Protein 1.10 mg/L (0-3.0) 06/28/21 15:30 B-Natriuretic Peptide 25.9 pg/mL (0-79) 06/28/21 15:30 Total Protein 5.8 g/dL (6.4-8.2) L 06/29/21 04:28 Albumin 2.6 g/dL (3.4-5.0) L 06/29/21 04:28 Globulin 3.2 g/dL (2.5-4.5) 06/29/21 04:28 Albumin/Globulin Ratio 0.8 Ratio (1.1-2.1) L 06/29/21 04:28 SARS CoV-2 RNA Rapid STANLEY Positive (NEGATIVE) A 06/28/21 14:38 Reason For Visit: NAUSEA, VOMITING, DIARRHEA Discharge Date Discharge Date: 06/29/21 Discharge Diagnosis All Active Problems (Updated 01/13/21 @ 21:11 by GISELA RAMOS) Chest pain, rule out acute myocardial infarction (Acute) Acute bronchitis due to Haemophilus influenzae (Acute) H/O heart artery stent (Chronic) Hyperlipidemia (Chronic) 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 Pt is to keep follow up appointment as instructed and take medications as ordered. Discharge Medications Discharge Medications: nitroglycerin Allergy (Verified 08/28/18 13:45) Follow up and Referral Follow Up: 1 Week Discharge Disposition Discharge Disposition: Home Discharge Condition: Stable Discharge Plan Discharge Plan Hospital Course: Pt is a 85 year old male admitted for COVID-19, dehydration, acute hypotension. He was a direct admit from Dr Baez's office. Pt was treated and given Regen- COV infusion, IVF, and Solumedrol 80mg Q8h. Pt responded well to treatments. Ivania exam, pt was sitting in recliner in no acute distress. He reports feeling much better and did not require any supplemental O2. Appetite and strength improved, BP wnl. Pt was observed throughout the day without any concerns and discharged in the afternoon in stable condition. Rx prednisone x 5 days. Instructed to follow up with pcp in 3-5 days. Patient Disposition: HOME, SELF-CARE Condition: Stable Health Concerns: Post Hospitalization: new medications and changes needed to prevent readmission or further decline. Pt educated and given instructions on all concerns. Plan of Treatment: Continue with present treatment and follow up plan. Pt is to keep follow up appointment as instructed and take medications as ordered. Prescriptions: New prednisone 20 mg tablet 20 mg PO BID 5 Days Qty: 10 RF: 0 Continued atorvastatin 40 MG tablet 40 mg PO HS RF: 0 clopidogrel [Plavix] 75 MG tablet 75 mg PO HS RF: 0 gabapentin 300 MG capsule 300 mg PO DAILY RF: 0 celecoxib [Celebrex] 200 mg Capsule 200 mg PO DAILY RF: 0 clonazepam 0.5 mg Tablet 0.5 mg PO HS RF: 0 meclizine 12.5 mg Tablet 12.5 mg PO BID PRNQty: 60 RF: 3 Orders to Discharge Patient Discharge Orders: Discharge (Routine); Ordered 06/29/21 Ordered By: Zay Bruner Follow ups/Referrals Follow ups/Referrals: Rodrigo Baez [Primary Care Provider] - 1 WEEK Instructions Stand Alone Forms: Excuse From Work or School, Precautions for COVID19, [facility], Patient Portal, Social Distancing
== END 2021-06-29 16:50 | disposition home or self-care (01) ==
LOC: MED/SURG → ICU 15:10
PROVIDERS: ADMIT Internal Medicine; ATTEND Internal Medicine
DX: Z86.16 Personal history of COVID-19; R11.2 Nausea with vomiting, unspecified; U07.1 COVID-19; I95.89 Other hypotension; R79.89 Other specified abnormal findings of blood chemistry; E86.0 Dehydration; R19.7 Diarrhea, unspecified